=== PATIENT | female | born 1955 | race Caucasian/White ===

== ENCOUNTER 2016-12-02 09:41 | Emergency (ER) | payer MEDICARE, MEDICAID ==
[2016-12-02] MEDS ORDERED: NS 0.9% 1000 ML* 1,000 ML IV ONE (10:06)
[2016-12-02] MEDS ORDERED: Ondansetron INJ* 2 MG/ML VIAL IV ONE (10:06)
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
[2016-12-02 10:51] LABS: Hematocrit 41 % (35-47); Hemoglobin 13.6 g/dl (12.0-16.0); Mean Corpuscular HGB Conc 33 g/dl (31-36); Mean Corpuscular Hemoglobin 27 pg (27-31); Mean Corpuscular Volume 83 fL (80-97); Mean Platelet Volume 9 um3 (7.4-10.4); Red Blood Count 4.94 10^6/ul (4.0-5.4); Red Cell Distribution Width 15 % (10.5-15); White Blood Count 10.4 10^3/ul (3.5-10.8)
[2016-12-02 10:58] LABS: Urine Bacteria 1+ (Absent); Urine Bilirubin Negative (Negative); Urine Glucose 1+(50 mg/dL) (Negative); Urine Nitrite Negative (Negative)
[2016-12-02 11:14] LABS: Albumin 3.8 g/dL (3.2-5.2); BUN/Creatinine Ratio 19.2 (8-20); C Reactive Protein 65.02 mg/L (< 5.00); Calcium 9.3 mg/dL (8.6-10.3); EGFR African American 73.1 (>60); EGFR Non-African American 56.8 (>60); Globulin 3.4 g/dL (2-4); Potassium 3.3 mmol/L (3.5-5.0); Total Bilirubin 0.6 mg/dL (0.2-1.0); Total Protein 7.2 g/dL (6.4-8.9)
[2016-12-02] MEDS ORDERED: Ketorolac INJ* 30 MG/ML 1 ML VIAL IV ONE (13:14)
--- NOTE | 2016-12-02 13:18 | RAD ---
INDICATION: Right upper quadrant pain. COMPARISON: Comparison is made with a prior CT of the abdomen and pelvis from August 05, 2015. TECHNIQUE: Multiple real-time images of the right kidney were obtained. FINDINGS: The right kidney is normal in size shape and echogenicity. The kidney measured 13.5 x 4.0 x 4.4 cm. No significant focal abnormality or hydronephrosis was present. IMPRESSION: NEGATIVE EXAM, NO EVIDENCE FOR HYDRONEPHROSIS.
[2016-12-02] MEDS ORDERED: Iodixanol* (CONTRAST) 320 MG/ML 100 ML SDV IV ONE (13:28)
[2016-12-02] MEDS ORDERED: diPHENhydraMINE IV* 50 MG/ML 1 ml VIAL (BENADRYL) IV ONE (13:30)
--- NOTE | 2016-12-02 15:36 | RAD ---
INDICATION: RIGHT upper quadrant to mid abdominal pain. History of nonalcoholic cirrhosis. Nausea, vomiting, diarrhea for 3 weeks. Post appendectomy, cholecystectomy. COMPARISON: RIGHT unilateral ultrasound of the same date. August 05, 2015 CT. TECHNIQUE: Multidetector CT images were obtained from the lung bases to the ischial tuberosities with 11.8 mL Visipaque 320 IV and oral contrast. Multiplanar reformation. REPORT: Minimal bibasilar dependent atelectasis. 0.4 cm and adjacent smaller subpleural nodules at the anterior basal segment of the RIGHT lower lobe are unchanged compared with the 2015 exam without concern. Coronary artery calcifications. 19 cm cephalocaudal liver is hypodense relative to the spleen are unremarkable for micronodular surface contour. No focal hepatic lesions or biliary dilatation. Post cholecystectomy. Unremarkable pancreas. Upper normal 12.7 cm cephalocaudal spleen. Patent portal, splenic, and superior mesenteric veins. Negative for CT abnormality of the upper GI, small bowel, or colon. The appendix is not visualized consistent with surgical history. Negative for ascites, free air, hernias. Normal adrenal glands. Symmetric nephrograms and pyelograms. No significant change in 0.5 cm hypodense lesion at the midpole cortex of the LEFT kidney compared with the 2015 exam without concern. No suspicious focal renal lesions or hydronephrosis. Unremarkable ureters and urinary bladder as well as the uterus and RIGHT adnexal region. Normal size LEFT ovary is remarkable for a few nonspecific calcifications without change compared with the 2015 exam without concern most likely representing phleboliths or dystrophic calcification at prior undulation sites. Negative for adnexal region lesions. Negative for lymphadenopathy. Peripheral vascular disease without aneurysm of the abdominal aorta or iliac arteries. Probable hemodynamic significant stenoses at the bilateral common iliac arteries without gross change in appearance compared with the 2015 exam. Negative for suspicious osseous lesions. IMPRESSION: 1. Mildly enlarged liver with fatty infiltration and subtle nodular surface contour concerning for early cirrhosis. No focal hepatic lesions evident. 2. Post cholecystectomy. Negative for biliary dilatation. 3. Upper normal size spleen. 4. Post appendectomy. No acute pathologic process of the alimentary tract evident. 5. Negative for ascites. 7. Negative for lymphadenopathy. 8. Peripheral vascular disease without aneurysm of the abdominal aorta or iliac arteries. Probable hemodynamic significant stenoses at the bilateral common iliac arteries without gross change in appearance compared with the 2015 exam.
[2016-12-02 16:09] LABS: Troponin I 0.01 ng/mL (<0.04)
[2016-12-02 17:12] VITALS: BP 128/55
--- NOTE | 2016-12-05 07:02 | ED ---
Progress - Progress Note Progress Note: Pt's urine cx reveals enterococcus faecium >100,000. This organism is pansensitive, with an "I" for nitrofurantoin. She has an allergy to levofloxacin so would avoid fluoroquinolones. She would be able to take PCN or doxycycline. LMTC. Re-Evaluation - Re-Evaluation First Eval Re-Evaluation Time: 13:30 Change: Worse Comment: Patient reporting itching with administration of toradol. Benadryl will be given. Second Eval Re-Evaluation Time: 14:40 Change: Improved - benadryl decreased itching. Comment: itching has subsided. Course/Dx - Diagnoses Provider Diagnoses: Abdominal pain
== END 2016-12-02 17:11 | disposition home or self-care (01) ==
LOC: ED 09:41
DX: R10.11 Right upper quadrant pain (principal); R11.2 Nausea with vomiting, unspecified; R19.7 Diarrhea, unspecified; F17.210 Nicotine dependence, cigarettes, uncomplicated
CPT/HCPCS: 36415; 74177; 76775; 80053; 81003; 81015; 82150; 83605; 83690; 84484; 85025; 86140; 87077; 87086; 87186; 96374; 96375; 99284; J1200; J1885; J2405; Q9967

== ENCOUNTER 2016-12-21 04:31 | Emergency (ER) | payer MEDICARE, MEDICAID ==
[2016-12-21] MEDS ORDERED: diPHENhydraMINE IV* 50 MG/ML 1 ml VIAL (BENADRYL) IV ONE (04:40)
[2016-12-21] MEDS ORDERED: NS 0.9% 1000 ML* 1,000 ML IV ONE (04:49)
[2016-12-21] MEDS ORDERED: Ondansetron INJ* 2 MG/ML VIAL IV ONE (04:49)
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
[2016-12-21 05:36] VITALS: BP 105/51
== END 2016-12-21 05:34 | disposition home or self-care (01) ==
LOC: ED 04:31
DX: L23.9 Allergic contact dermatitis, unspecified cause (principal); F17.210 Nicotine dependence, cigarettes, uncomplicated; R06.02 Shortness of breath; R68.84 Jaw pain
CPT/HCPCS: 96374; 96375; 99282; J1200; J2405

== ENCOUNTER 2017-02-21 07:06 | Inpatient (IN) | payer MEDICARE, MEDICAID ==
[2017-02-21] MEDS ORDERED: Aspirin TAB* 325 MG PO ONE (07:40)
[2017-02-21 08:20] LABS: Albumin 3.4 g/dL (3.2-5.2); BUN/Creatinine Ratio 13.4 (8-20); Calcium 8.8 mg/dL (8.6-10.3); EGFR African American 90.8 (>60); EGFR Non-African American 70.6 (>60); Globulin 3.2 g/dL (2-4); Total Bilirubin 0.4 mg/dL (0.2-1.0); Total Protein 6.6 g/dL (6.4-8.9)
--- NOTE | 2017-02-21 08:20 | RAD ---
HISTORY: Chest pain COMPARISONS: November 11, 2016 VIEWS:1: Single frontal portable view of the chest at 7:45 AM FINDINGS: LINES AND TUBES: None. CARDIOMEDIASTINAL SILHOUETTE: The cardiomediastinal silhouette is normal for portable technique. PLEURA: The costophrenic angles are sharp. No pleural abnormalities are noted. LUNG PARENCHYMA: There is hyperinflation. ABDOMEN: The upper abdomen is clear. There is no subphrenic gas. BONES AND SOFT TISSUES: No bone or soft tissue abnormalities are noted. IMPRESSION: HYPERINFLATION. NO ACTIVE CARDIOPULMONARY DISEASE.
[2017-02-21 08:24] LABS: Hematocrit 39 % (35-47); Hemoglobin 12.9 g/dl (12.0-16.0); Mean Corpuscular HGB Conc 33 g/dl (31-36); Mean Corpuscular Hemoglobin 28 pg (27-31); Mean Corpuscular Volume 84 fL (80-97); Mean Platelet Volume 9 um3 (7.4-10.4); Red Blood Count 4.63 10^6/ul (4.0-5.4); Red Cell Distribution Width 16 % (10.5-15); White Blood Count 10.8 10^3/ul (3.5-10.8)
[2017-02-21] MEDS ORDERED: Nitroglycerin TAB 0.4 MG* 0.4 MG TAB SL ONE (09:39)
[2017-02-21] MEDS ORDERED: Nitroglycerin TAB 0.4 MG* 0.4 MG TAB SL PRN (13:24)
[2017-02-21] MEDS ORDERED: Dextrose 50% Syringe 50 ML* 25 GM/50 ML SYRINGE IV PUSH PRN (13:25)
[2017-02-21] MEDS ORDERED: Ondansetron INJ* 2 MG/ML VIAL IV PRN (15:10)
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
[2017-02-21] MEDS: Clopidogrel TAB* 75 MG PO SCH (16:11)
[2017-02-21] MEDS: Metoprolol Succinate XL TAB* 25 MG PO SCH (16:12)
[2017-02-21] MEDS: Baclofen TAB* 10 MG PO SCH ×2 (16:12→20:49)
[2017-02-21] MEDS: Hydrochlorothiazide TAB* 25 MG PO SCH (16:13)
[2017-02-21] MEDS: Isosorbide Mononitrate ER TAB* 30 MG PO SCH (16:13)
[2017-02-21] MEDS: Atorvastatin* 40 MG TAB PO SCH (16:13)
[2017-02-21] MEDS: Ferrous Sulfate TAB* 325 MG PO SCH (16:14)
[2017-02-21] MEDS: Enoxaparin(*) 40 MG/0.4 ML SYR SUBCUT SCH (16:14)
[2017-02-21] MEDS: Insulin LISPRO* 1 UNITS UNIT SUBCUT SCH (16:49)
[2017-02-21] MEDS: Pramipexole TAB* 0.5 MG PO SCH (16:50)
[2017-02-21] MEDS: Lisinopril TAB* 10 MG PO SCH (20:49)
[2017-02-21] MEDS: Ibuprofen TAB* 400 MG PO PRN (22:16)
--- NOTE | 2017-02-21 23:55 | HP ---
CC: Dr. Rene Parks; Dr. Son Brody, Cardiology * HISTORY AND PHYSICAL: DATE OF ADMISSION: 02/21/17 PRIMARY CARE PHYSICIAN: Dr. Rene Parks. CHIEF COMPLAINT: Chest pain, nausea, vomiting. HISTORY OF PRESENT ILLNESS: Ms. Nowak is a 61-year-old female with a past medical history of hypertension; hyperlipidemia; CAD, status post stent placement; diabetes; peripheral vascular disease; aortic regurgitation; NANDA; and OLSON cirrhosis who presents to the hospital with chest pain, nausea, vomiting. The patient states she saw Dr. Brody yesterday per routine evaluation. She has reportedly been having this exertional chest pain for a year now and Dr. Brody has been trying to help manage it telling that she will likely need another cardiac catheterization and possible stent placement. She states the chest pain is present with exertion and associated with shortness of breath. Occasionally, she will have symptoms at rest as well. She went to see Dr. Brody yesterday and she states that he prescribed Imdur and Toprol-XL to add to her regimen to try to control her anginal symptoms. The patient states she was prescribed to take half a pill twice a day of both of these medications ; however, in speaking with the pharmacy, it appears that this should be half a pill once a day. She states she took the first medication shortly after she saw Dr. Brody in the morning and took them again at 7 p.m. About 4 to 5 hours later, she developed nausea and vomiting, which persisted throughout the night and then, she states around 6:30 p.m., she started having pain in her bilateral neck radiating to her jaw. Due to these symptoms, she came to the hospital for further evaluation. She states for the past few nights, she has woken up gasping for air. She states she has had a sleep study in the past and she states that she could not use CPAP because she was told that she needs to have surgery first and has not had cardiac clearance for this. She also reports that she has had intermittent nausea and vomiting that has been going on for a few months now. She states the last time this happened, it went on for 1 month where she would have emesis nearly every day. This was felt to be possibly due to her diabetic medications and after stopping these, her symptoms resolved after a week or so. This was just recently over the past few weeks. In the emergency department, the patient was found to have two negative troponins. Dr. Avelar spoke to Dr. Gonzalez, the assessment manager wireless sales consultant, who spoke to the patient's primary assessment manager, Dr. Brody, who requested that she be admitted for a stress test for maximum medical therapy to see if she is still having inducible ischemia. PAST MEDICAL HISTORY: Hypertension; hyperlipidemia; CAD, status post stenting in the past; diabetes; peripheral vascular disease; aortic regurgitation; NANDA. The patient reports history of OLSON cirrhosis. PAST SURGICAL HISTORY: Lap denia, appendectomy, tubal ligation, lumpectomy, laminectomy, bilateral lower extremity stenting. HOME MEDICATIONS: 1. Hydrochlorothiazide 50 mg by mouth daily. 2. Glipizide 5 mg by mouth 2 times daily. 3. Ferrous sulfate 325 mg by mouth daily. 4. Toprol-XL 12.5 mg by mouth daily. 5. Imdur 15 mg by mouth daily. 6. Alendronate 70 mg by mouth weekly. 7. Plavix 75 mg by mouth daily. 8. Baclofen 20 mg by mouth 3 times daily. 9. Atorvastatin 40 mg by mouth daily. 10. Aspirin 81 mg by mouth daily. 11. Nitroglycerin 0.4 mg sublingual every 5 minutes as needed for chest pain. 12. Lisinopril 20 mg by mouth 2 times daily. 13. Ibuprofen 40 mg by mouth every 6 hours as needed for pain. 14. Benadryl 50 mg by mouth every 6 hours as needed for allergy symptoms. 15. Pramipexole 1.5 mg by mouth every evening. 16. Omeprazole 20 mg by mouth 2 times daily. ALLERGIES: The patient has allergies to LEVOFLOXACIN, PREGABALIN, SULFA DRUGS, CI PIGMENT BLUE 63, DULOXETINE, ACETAMINOPHEN, GABAPENTIN, MORPHINE, OXYCODONE, TRAMADOL. FAMILY HISTORY: Significant for mother with cirrhosis, father with leukemia. SOCIAL HISTORY: The patient is a current 1 pack per day smoker, has been smoking for 40 plus years. Denies any alcohol or illicit drug use. REVIEW OF SYSTEMS: A 12-point review of systems negative except for that as noted in the HPI. PHYSICAL EXAMINATION GENERAL: The patient is a middle-aged, obese, female, sitting in bed , in no apparent distress. VITAL SIGNS: On admission, temperature 97.6, heart rate 63, respiratory rate of 18, O2 saturation 98% on room air, blood pressure 170/74. HEENT: Normocephalic, atraumatic. Eyes: Pupils equal, round, reactive to light and accommodation. Anicteric sclerae. ENT: Moist mucous membranes. NECK: No cervical adenopathy. LUNGS: Clear to auscultation bilaterally. No wheezes, rales, or rhonchi. CARDIOVASCULAR: Regular rate and rhythm. S1, S2 present. Systolic ejection murmur noted. ABDOMEN: Soft, nontender, nondistended. Bowel sounds positive. EXTREMITIES: No cyanosis, clubbing, or edema. NEUROLOGIC: The patient is alert and oriented x3. No focal neurological deficits. LABS AND DIAGNOSTICS: White blood cell count 10.8, hematocrit of 39, platelets of 172. INR of 0.93. Sodium of 130, potassium 4.0, chloride of 101, carbon dioxide 26, BUN 11, creatinine 0.82, glucose 280, lactic acid of 1.7, calcium of 8.8. LFTs: AST of 20, ALT of 27, alk phos of 110. Troponins negative x3. EKG - personally reviewed, shows normal sinus rhythm. Flattened T waves in the lateral leads and T wave inversions in I and aVL, which are both old. The patient has Q waves in lead III, which seemed new. Chest x-ray - personally reviewed, shows hyperinflation of the lungs with no acute disease. ASSESSMENT AND PLAN: Chest pain, nausea, and vomiting in a 61-year-old female with a past medical history of hypertension, hyperlipidemia, coronary artery disease, diabetes, peripheral vascular disease, aortic regurgitation, obstructive sleep apnea, and possible nonalcoholic steatohepatitis cirrhosis. 1. Chest pain, nausea, vomiting: Possibly related to underlying cardiac disease. She has had negative troponin x3. We will monitor the patient on telemetry and we will plan for nuclear cardiac stress test in the morning. I have instructed the nursing staff to give the patient all of her a.m. medications in the morning prior to her stress test. The patient's nausea and vomiting seemed to have resolved right now. It is unclear if this was due to her medications, but we will trial them today to see if she tolerates them. We will give Zofran p.r.n. 2. Diabetes: Hold home glipizide for now. Treat the patient with a Humalog insulin sliding scale. Check glucoses a.c. and h.s. 3. Hypertension: Continue home metoprolol, lisinopril, hydrochlorothiazide, and Imdur. 4. History of coronary artery disease: Continue home beta-giorgi, statin, aspirin, and Plavix. 5. Obstructive sleep apnea: The patient is not on CPAP at home and states she cannot use one until she has some sort of oral or throat surgery. 6. Possible cirrhosis: No evidence of any decompensation at this time. 7. DVT prophylaxis: Lovenox subcu. 8. Code status: The patient is full code. TIME SPENT: Total time spent on this admission 45 minutes with over half the time spent [id number] with the patient in counseling and coordinating care. [id number]/CPS #: [id number] MTDD
[2017-02-22] MEDS ORDERED: Mouth Piece, Nicotine* 1 EACH CARTRIDGE ONE (01:32)
[2017-02-22] MEDS: Nicotine Inhaler* 10 MG AMP INH PRN ×2 (01:34→15:13)
[2017-02-22] MEDS: Ibuprofen TAB* 400 MG PO PRN ×2 (06:16→18:52)
[2017-02-22] MEDS: Clopidogrel TAB* 75 MG PO SCH (07:48)
[2017-02-22] MEDS: Ferrous Sulfate TAB* 325 MG PO SCH (07:48)
[2017-02-22] MEDS: Lisinopril TAB* 10 MG PO SCH ×2 (07:48→20:46)
[2017-02-22] MEDS: Isosorbide Mononitrate ER TAB* 30 MG PO SCH (07:48)
[2017-02-22] MEDS: Atorvastatin* 40 MG TAB PO SCH (07:49)
[2017-02-22] MEDS: Metoprolol Succinate XL TAB* 25 MG PO SCH (07:49)
[2017-02-22] MEDS: Aspirin EC Low Dose* 81 MG TAB.EC PO SCH (07:50)
[2017-02-22] MEDS: Hydrochlorothiazide TAB* 25 MG PO SCH (07:50)
[2017-02-22] MEDS: Baclofen TAB* 10 MG PO SCH ×3 (07:50→20:47)
[2017-02-22] MEDS: CMCS:Pantoprazole TAB (NF) 40 MG TAB PO SCH (07:50)
[2017-02-22] MEDS ORDERED: Regadenoson* 0.4 MG/5 ML SYRINGE ONE (09:47)
[2017-02-22] MEDS: Insulin LISPRO* 1 UNITS UNIT SUBCUT SCH ×3 (09:57→17:41)
--- NOTE | 2017-02-22 10:49 | RAD ---
Edited for charges. INDICATION: Chest pain. COMPARISON: Comparison is made with a prior study from October 18, 2013. Technique: A single day myocardial perfusion stress study was performed. Initially the resting study was performed. The patient was given an intravenous injection of 10.1 mCi of technetium 99m tetrofosmin and and the heart was imaged in multiple projections. The patient returned later in the day and under the direction of Dr. Cantu, the patient was given intervenous injection of Lexiscan. Subsequently the patient was given intravenous injection of 25.3 mCi of technetium 99m tetrofosmin and the heart was imaged in multiple projections. Images were reconstructed in the axial, sagittal and coronal planes and in a 3- D format. FINDINGS: There appears to be normal wall motion and myocardial thickening. The left ventricular ejection fraction was calculated to be 66%. Review of the images demonstrates a small to moderate size area of decreased activity in the anterior wall on the post pharmacologic stress images which appears improved on the resting set of images suggestive of an area of ischemia. No other focal abnormalities are seen. IMPRESSION: FINDINGS SUGGESTIVE OF A SMALL TO MODERATE SIZE AREA OF ISCHEMIA IN THE ANTERIOR WALL. ASSESSMENT: Intermediate risk. Based on imaging criteria from ACC/AHA 2002 Guideline Update for the Management of Patients With Chronic Stable Angina Table 23. Noninvasive Risk Stratification. MTDD
--- NOTE | 2017-02-22 11:22 | PN ---
Subjective Date of Service: 02/22/17 Interval History: Ms. Nowak states that she has continued to have chest pressure, SOB, and jaw pain intermittently. At the time of my examination she states that she only feels a bit of jaw discomfort. Objective Active Medications: Aspirin (Aspirin Ec Low Dose*) 81 mg PO DAILY [facility] Atorvastatin Calcium (Lipitor*) 40 mg PO DAILY [facility] Baclofen (Lioresal Tab*) 20 mg PO TID [facility] Clopidogrel Bisulfate (Plavix Tab*) 75 mg PO DAILY [facility] Dextrose (D50w Syringe 50 Ml*) 12.5 gm IV PUSH .FOR FS < 60 - SS PRN Enoxaparin Sodium (Lovenox(*)) 40 mg SUBCUT Q24H [facility] Ferrous Sulfate (Ferrous Sulfate Tab*) 325 mg PO DAILY [facility] Hydrochlorothiazide (Hydrodiuril Tab*) 50 mg PO DAILY [facility] Ibuprofen (Motrin Tab*) 400 mg PO Q6H PRN Insulin Human Lispro (Humalog*) 0 - 15 units SUBCUT AC [facility] Isosorbide Mononitrate (Imdur Er Tab*) 15 mg PO DAILY [facility] Lisinopril (Prinivil Tab*) 20 mg PO BID [facility] Metoprolol Succinate (Toprol Xl Tab*) 12.5 mg PO DAILY [facility] Nicotine (Nicotine Inhaler*) 10 mg INH Q2H PRN Nitroglycerin (Nitroglycerin Tab 0.4 Mg*) 0.4 mg SL Q5M PRN Ondansetron HCl (Zofran Inj*) 4 mg IV Q6H PRN Pantoprazole Sodium (Protonix Tab (Nf)) 40 mg PO DAILY [facility] Pramipexole Dihydrochloride (Mirapex Tab*) 1.5 mg PO QPM [facility] Vital Signs 02/21/17 02/21/17 02/21/17 13:26 13:30 14:28 Temperature Pulse Rate 59 Respiratory Rate Blood Pressure 143/85 161/68 174/47 (mmHg) O2 Sat by Pulse 98 Oximetry 02/21/17 02/21/17 02/21/17 14:30 15:35 15:36 Temperature 98.0 F 98.0 F Pulse Rate 63 63 Respiratory 18 18 Rate Blood Pressure 155/76 144/76 144/76 (mmHg) O2 Sat by Pulse 99 98 Oximetry 02/21/17 02/21/17 02/22/17 19:20 23:42 03:18 Temperature 97.6 F 97.4 F 97.4 F Pulse Rate 60 61 54 Respiratory 20 16 16 Rate Blood Pressure 119/43 132/62 103/65 (mmHg) O2 Sat by Pulse 99 96 98 Oximetry 02/22/17 07:10 Temperature 97.5 F Pulse Rate 57 Respiratory 18 Rate Blood Pressure 162/71 (mmHg) O2 Sat by Pulse 96 Oximetry Oxygen Devices in Use Now: Nasal Cannula Appearance: Female sitting up in bed in NAD Eyes: No Scleral Icterus Ears/Nose/Mouth/Throat: Mucous Membranes Moist Neck: Trachea Midline Respiratory: Symmetrical Chest Expansion and Respiratory Effort, Clear to Auscultation Cardiovascular: No Edema, - - Si, S2, soft systolic murmur at sternal border Abdominal: NL Sounds; No Tenderness; No Distention Lymphatic: No Cervical Adenopathy Extremities: No Edema Skin: No Rash or Ulcers Neurological: Alert and Oriented x 3, NL Muscle Strength and Tone Nutrition: Taking PO's Result Diagrams: 02/21/17 07:50 02/21/17 07:50 Additional Lab and Data: Lab Results 02/21/17 02/21/17 02/21/17 Range/Units 07:50 07:50 07:50 WBC 10.8 (3.5-10.8) 10^3/ul RBC 4.63 (4.0-5.4) 10^6/ul Hgb 12.9 (12.0-16.0) g/dl Hct 39 (35-47) % MCV 84 (80-97) fL MCH 28 (27-31) pg MCHC 33 (31-36) g/dl RDW 16 H (10.5-15) % Plt Count 172 (150-450) 10^3/ul MPV 9 (7.4-10.4) um3 Neut % (Auto) 81.4 (38-83) % Lymph % (Auto) 11.2 L (25-47) % [place] % (Auto) 4.9 (1-9) % Eos % (Auto) 1.7 (0-6) % Baso % (Auto) 0.8 (0-2) % Absolute Neuts (auto) 8.8 H (1.5-7.7) 10^3/ul Absolute Lymphs (auto) 1.2 (1.0-4.8) 10^3/ul Absolute Monos (auto) 0.5 (0-0.8) 10^3/ul Absolute Eos (auto) 0.2 (0-0.6) 10^3/ul Absolute Basos (auto) 0.1 (0-0.2) 10^3/ul Absolute Nucleated RBC 0.01 10^3/ul Nucleated RBC % 0 INR (Anticoag Therapy) 0.93 (0.89-1.11) Sodium 130 L (133-145) mmol/L Potassium 4.0 (3.5-5.0) mmol/L Chloride 101 (101-111) mmol/L Carbon Dioxide 26 (22-32) mmol/L Anion Gap 3 (2-11) mmol/L BUN 11 (6-24) mg/dL Creatinine 0.82 (0.51-0.95) mg/dL Est GFR ( Amer) 90.8 (>60) Est GFR (Non-Af Amer) 70.6 (>60) BUN/Creatinine Ratio 13.4 (8-20) Glucose 280 H (70-100) mg/dL Lactic Acid (0.5-2.0) mmol/L Calcium 8.8 (8.6-10.3) mg/dL Total Bilirubin 0.40 (0.2-1.0) mg/dL AST 20 (13-39) U/L ALT 27 (7-52) U/L Alkaline Phosphatase 110 H (34-104) U/L Troponin I 0.00 (<0.04) ng/mL Total Protein 6.6 (6.4-8.9) g/dL Albumin 3.4 (3.2-5.2) g/dL Globulin 3.2 (2-4) g/dL Albumin/Globulin Ratio 1.1 (1-3) 02/21/17 02/21/17 Range/Units 07:50 10:32 WBC (3.5-10.8) 10^3/ul RBC (4.0-5.4) 10^6/ul Hgb (12.0-16.0) g/dl Hct (35-47) % MCV (80-97) fL MCH (27-31) pg MCHC (31-36) g/dl RDW (10.5-15) % Plt Count (150-450) 10^3/ul MPV (7.4-10.4) um3 Neut % (Auto) (38-83) % Lymph % (Auto) (25-47) % [place] % (Auto) (1-9) % Eos % (Auto) (0-6) % Baso % (Auto) (0-2) % Absolute Neuts (auto) (1.5-7.7) 10^3/ul Absolute Lymphs (auto) (1.0-4.8) 10^3/ul Absolute Monos (auto) (0-0.8) 10^3/ul Absolute Eos (auto) (0-0.6) 10^3/ul Absolute Basos (auto) (0-0.2) 10^3/ul Absolute Nucleated RBC 10^3/ul Nucleated RBC % INR (Anticoag Therapy) (0.89-1.11) Sodium (133-145) mmol/L Potassium (3.5-5.0) mmol/L Chloride (101-111) mmol/L Carbon Dioxide (22-32) mmol/L Anion Gap (2-11) mmol/L BUN (6-24) mg/dL Creatinine (0.51-0.95) mg/dL Est GFR ( Amer) (>60) Est GFR (Non-Af Amer) (>60) BUN/Creatinine Ratio (8-20) Glucose (70-100) mg/dL Lactic Acid 1.7 (0.5-2.0) mmol/L Calcium (8.6-10.3) mg/dL Total Bilirubin (0.2-1.0) mg/dL AST (13-39) U/L ALT (7-52) U/L Alkaline Phosphatase (34-104) U/L Troponin I 0.00 (<0.04) ng/mL Total Protein (6.4-8.9) g/dL Albumin (3.2-5.2) g/dL Globulin (2-4) g/dL Albumin/Globulin Ratio (1-3) Assess/Plan/Problems-Billing Assessment: Mr. Nowak is a 61 yo female with a PMH of CAD with stent placement to the RCA and LAD, DM, HTN, NANDA, PVD, aortic regurgitation who was admitted on 02/21/17 with chest pain radiating into jaw and SOB. - Patient Problems (1) Chest pain Comment: - Patient continues to have mild jaw pain at rest. - Trops negative but stress test read by radiology to show an area of inducible ischemia to the anterior wall. Patient has been following with Dr. Brody for return of anginal type symptoms recently. Has history of CAD with stent to LAD and RCA. Discussed case with Dr. Cantu who reviewed the images with Dr. Sorensen. Neither of them feel there is ischemia in the area noted by radiology. Dr. Cantu states no cardiac cath indicated at this time. Dr. Cantu recommends maximizing medical therapy with increased dose isosorbide and metoprolol. Plan for close follow up with Dr. Sorensen outpatient. - Dr. Cantu consulted for consideration fo repeat cardiac cath. - Continue aspirin, plavix, metoprolol, isosorbide. (2) NANDA (obstructive sleep apnea) Comment: - Not on CPAP at home as she cannot tolerate it. - Suspect that her symptoms of chest pressure are in part related to untreated NANDA as they have all occurred at night when she wakes suddenly when trying to go to sleep gasping for air. - Plan to check overnight pulse ox on room air to see if home O2 at night would be helpful for her. (3) Diabetes Comment: - BGs ~ 200. - Hold glipizide. Increase SSI coverage with meals. AM BG relatively well controlled. Continue consistent carb diet. (4) Hypertension Comment: - SBP 100-160s. - Continue increased dose metoprolol, increased dose isosorbide and lisinopril. (5) Hyperlipidemia Comment: - Continue atorvastatin. (6) DVT prophylaxis Comment: - Lovenox SQ. Status and Disposition: Convert to inpatient with need for possible cardiac cath. Anticipate discharge to home when medically stable.
[2017-02-22] MEDS ORDERED: Nicotine PATCH 21 MG/24 HR* PATCH TRANSDERM SCH (15:00)
[2017-02-22] MEDS ORDERED: Nicotine PATCH 14 MG/24 HR* PATCH TRANSDERM SCH (15:00)
[2017-02-22] MEDS ORDERED: Isosorbide Mononitrate ER TAB* 30 MG PO SCH (15:12)
[2017-02-22] MEDS ORDERED: Metoprolol Succinate XL TAB* 25 MG PO SCH (15:13)
[2017-02-22] MEDS: Enoxaparin(*) 40 MG/0.4 ML SYR SUBCUT SCH (15:15)
[2017-02-22] MEDS ORDERED: Isosorbide Mononitrate ER TAB* 30 MG PO ONE (16:22)
[2017-02-22] MEDS ORDERED: Metoprolol Tartrate TAB* 25 MG PO ONE (16:23)
[2017-02-22] MEDS: Pramipexole TAB* 0.5 MG PO SCH (17:05)
[2017-02-23] MEDS: Ibuprofen TAB* 400 MG PO PRN (04:00)
[2017-02-23] MEDS ORDERED: Nicotine Patch Removal NOTE FOLLOW UP SCH (06:00)
[2017-02-23 07:24] VITALS: BP 143/73
[2017-02-23] MEDS: Ferrous Sulfate TAB* 325 MG PO SCH (08:21)
[2017-02-23] MEDS: Lisinopril TAB* 10 MG PO SCH (08:21)
[2017-02-23] MEDS: Hydrochlorothiazide TAB* 25 MG PO SCH (08:21)
[2017-02-23] MEDS: Aspirin EC Low Dose* 81 MG TAB.EC PO SCH (08:21)
[2017-02-23] MEDS: Clopidogrel TAB* 75 MG PO SCH (08:21)
[2017-02-23] MEDS: Baclofen TAB* 10 MG PO SCH (08:21)
[2017-02-23] MEDS: Atorvastatin* 40 MG TAB PO SCH (08:21)
[2017-02-23] MEDS: CMCS:Pantoprazole TAB (NF) 40 MG TAB PO SCH (08:22)
[2017-02-23] MEDS: Insulin LISPRO* 1 UNITS UNIT SUBCUT SCH (08:22)
--- NOTE | 2017-02-23 08:39 | PN ---
Subjective Date of Service: 02/23/17 Interval History: Ms. Nowak states that she was actually able to sleep well last night. When I ask what was different, she states, " I was just exhausted." She denies complaint of chest pain or SOB and is eager for discharge to home. Objective Active Medications: Aspirin (Aspirin Ec Low Dose*) 81 mg PO DAILY [facility] Atorvastatin Calcium (Lipitor*) 40 mg PO DAILY [facility] Baclofen (Lioresal Tab*) 20 mg PO TID [facility] Clopidogrel Bisulfate (Plavix Tab*) 75 mg PO DAILY [facility] Dextrose (D50w Syringe 50 Ml*) 12.5 gm IV PUSH .FOR FS < 60 - SS PRN Enoxaparin Sodium (Lovenox(*)) 40 mg SUBCUT Q24H [facility] Ferrous Sulfate (Ferrous Sulfate Tab*) 325 mg PO DAILY [facility] Hydrochlorothiazide (Hydrodiuril Tab*) 50 mg PO DAILY [facility] Ibuprofen (Motrin Tab*) 400 mg PO Q6H PRN Insulin Human Lispro (Humalog*) 0 - 15 units SUBCUT AC [facility] Isosorbide Mononitrate (Imdur Er Tab*) 30 mg PO DAILY [facility] Lisinopril (Prinivil Tab*) 20 mg PO BID [facility] Metoprolol Succinate (Toprol Xl Tab*) 25 mg PO DAILY [facility] Nicotine (Nicotine Inhaler*) 10 mg INH Q2H PRN Nicotine (Nicotine Patch 21 Mg/24 Hr*) 1 patch TRANSDERM Q24H [facility] Nitroglycerin (Nitroglycerin Tab 0.4 Mg*) 0.4 mg SL Q5M PRN Ondansetron HCl (Zofran Inj*) 4 mg IV Q6H PRN Pantoprazole Sodium (Protonix Tab (Nf)) 40 mg PO DAILY [facility] Pharmacy Profile Note (Nicotine Patch Removal Note*) 1 note FOLLOW UP 0600 [facility] Pramipexole Dihydrochloride (Mirapex Tab*) 1.5 mg PO QPM [facility] Vital Signs 02/22/17 02/22/17 02/22/17 15:05 19:19 20:00 Temperature 97.6 F 97.4 F Pulse Rate 63 60 Respiratory 20 20 20 Rate Blood Pressure 149/67 110/56 (mmHg) O2 Sat by Pulse 96 96 Oximetry 02/22/17 02/23/17 02/23/17 23:17 03:24 07:09 Temperature 97.7 F 97.8 F 98.3 F Pulse Rate 57 53 58 Respiratory 16 16 18 Rate Blood Pressure 116/43 110/46 143/73 (mmHg) O2 Sat by Pulse 99 97 98 Oximetry 02/23/17 07:35 Temperature Pulse Rate Respiratory 18 Rate Blood Pressure (mmHg) O2 Sat by Pulse Oximetry Oxygen Devices in Use Now: None Appearance: Female sitting up in bed in NAD Eyes: No Scleral Icterus Ears/Nose/Mouth/Throat: Mucous Membranes Moist Neck: Trachea Midline Respiratory: Symmetrical Chest Expansion and Respiratory Effort, Clear to Auscultation Cardiovascular: NL Sounds; No Murmurs; No JVD, No Edema Abdominal: NL Sounds; No Tenderness; No Distention Lymphatic: No Cervical Adenopathy Extremities: No Edema Skin: No Rash or Ulcers Neurological: Alert and Oriented x 3, NL Muscle Strength and Tone Nutrition: Taking PO's Result Diagrams: 02/21/17 07:50 02/21/17 07:50 Additional Lab and Data: Lab Results 02/21/17 02/21/17 02/21/17 Range/Units 07:50 07:50 07:50 WBC 10.8 (3.5-10.8) 10^3/ul RBC 4.63 (4.0-5.4) 10^6/ul Hgb 12.9 (12.0-16.0) g/dl Hct 39 (35-47) % MCV 84 (80-97) fL MCH 28 (27-31) pg MCHC 33 (31-36) g/dl RDW 16 H (10.5-15) % Plt Count 172 (150-450) 10^3/ul MPV 9 (7.4-10.4) um3 Neut % (Auto) 81.4 (38-83) % Lymph % (Auto) 11.2 L (25-47) % [place] % (Auto) 4.9 (1-9) % Eos % (Auto) 1.7 (0-6) % Baso % (Auto) 0.8 (0-2) % Absolute Neuts (auto) 8.8 H (1.5-7.7) 10^3/ul Absolute Lymphs (auto) 1.2 (1.0-4.8) 10^3/ul Absolute Monos (auto) 0.5 (0-0.8) 10^3/ul Absolute Eos (auto) 0.2 (0-0.6) 10^3/ul Absolute Basos (auto) 0.1 (0-0.2) 10^3/ul Absolute Nucleated RBC 0.01 10^3/ul Nucleated RBC % 0 INR (Anticoag Therapy) 0.93 (0.89-1.11) Sodium 130 L (133-145) mmol/L Potassium 4.0 (3.5-5.0) mmol/L Chloride 101 (101-111) mmol/L Carbon Dioxide 26 (22-32) mmol/L Anion Gap 3 (2-11) mmol/L BUN 11 (6-24) mg/dL Creatinine 0.82 (0.51-0.95) mg/dL Est GFR ( Amer) 90.8 (>60) Est GFR (Non-Af Amer) 70.6 (>60) BUN/Creatinine Ratio 13.4 (8-20) Glucose 280 H (70-100) mg/dL Lactic Acid (0.5-2.0) mmol/L Calcium 8.8 (8.6-10.3) mg/dL Total Bilirubin 0.40 (0.2-1.0) mg/dL AST 20 (13-39) U/L ALT 27 (7-52) U/L Alkaline Phosphatase 110 H (34-104) U/L Troponin I 0.00 (<0.04) ng/mL Total Protein 6.6 (6.4-8.9) g/dL Albumin 3.4 (3.2-5.2) g/dL Globulin 3.2 (2-4) g/dL Albumin/Globulin Ratio 1.1 (1-3) 02/21/17 02/21/17 Range/Units 07:50 10:32 WBC (3.5-10.8) 10^3/ul RBC (4.0-5.4) 10^6/ul Hgb (12.0-16.0) g/dl Hct (35-47) % MCV (80-97) fL MCH (27-31) pg MCHC (31-36) g/dl RDW (10.5-15) % Plt Count (150-450) 10^3/ul MPV (7.4-10.4) um3 Neut % (Auto) (38-83) % Lymph % (Auto) (25-47) % [place] % (Auto) (1-9) % Eos % (Auto) (0-6) % Baso % (Auto) (0-2) % Absolute Neuts (auto) (1.5-7.7) 10^3/ul Absolute Lymphs (auto) (1.0-4.8) 10^3/ul Absolute Monos (auto) (0-0.8) 10^3/ul Absolute Eos (auto) (0-0.6) 10^3/ul Absolute Basos (auto) (0-0.2) 10^3/ul Absolute Nucleated RBC 10^3/ul Nucleated RBC % INR (Anticoag Therapy) (0.89-1.11) Sodium (133-145) mmol/L Potassium (3.5-5.0) mmol/L Chloride (101-111) mmol/L Carbon Dioxide (22-32) mmol/L Anion Gap (2-11) mmol/L BUN (6-24) mg/dL Creatinine (0.51-0.95) mg/dL Est GFR ( Amer) (>60) Est GFR (Non-Af Amer) (>60) BUN/Creatinine Ratio (8-20) Glucose (70-100) mg/dL Lactic Acid 1.7 (0.5-2.0) mmol/L Calcium (8.6-10.3) mg/dL Total Bilirubin (0.2-1.0) mg/dL AST (13-39) U/L ALT (7-52) U/L Alkaline Phosphatase (34-104) U/L Troponin I 0.00 (<0.04) ng/mL Total Protein (6.4-8.9) g/dL Albumin (3.2-5.2) g/dL Globulin (2-4) g/dL Albumin/Globulin Ratio (1-3) Assess/Plan/Problems-Billing Assessment: Mr. Nowak is a 61 yo female with a PMH of CAD with stent placement to the RCA and LAD, DM, HTN, NANDA, PVD, aortic regurgitation who was admitted on 02/21/17 with chest pain radiating into jaw and SOB. - Patient Problems (1) Chest pain Comment: - Resolved. - Trops negative but stress test read by radiology to show an area of inducible ischemia to the anterior wall. Patient has been following with Dr. Brody for return of anginal type symptoms recently. Has history of CAD with stent to LAD and RCA. Discussed case with Dr. Cantu who reviewed the images with Dr. Sorensen. Neither of them feel there is ischemia in the area noted by radiology. Dr. Cantu states no cardiac cath indicated at this time. Dr. Cantu recommends maximizing medical therapy with increased dose isosorbide and metoprolol. Plan for close follow up with Dr. Sorensen outpatient. - Continue aspirin, plavix. - No evidence of CHF. Cxray clear and BNP 44. (2) NANDA (obstructive sleep apnea) Comment: - Not on CPAP at home as she cannot tolerate it. - Suspect that her symptoms of chest pressure are in part related to untreated NANDA as they have all occurred at night when she wakes suddenly when trying to go to sleep gasping for air. - She does qualify for home O2 at bedtime, caseworker protective services to arrange. (3) Diabetes Comment: - BGs ~ 200. - Resume home glipizide. (4) Hypertension Comment: - SBP 140s. - Continue increased dose metoprolol, increased dose isosorbide and lisinopril. (5) Hyperlipidemia Comment: - Continue atorvastatin. (6) DVT prophylaxis Comment: - Lovenox SQ. Status and Disposition: Convert to inpatient with need for possible cardiac cath. Discharge to home.
--- NOTE | 2017-02-24 08:06 | DS ---
CC: Rene Parks MD; Operations Asst Son Brody MD* HOSPITAL MEDICINE DISCHARGE SUMMARY: DATE OF ADMISSION: 02/22/17 DATE OF DISCHARGE: 02/23/17 ATTENDING PHYSICIAN: Dr. Adrianna Georges* (dictation provided by Kimberly Fair NP) . PRIMARY CARE PHYSICIAN: Dr. Rene Parks. CHIEF COMPLAINT: Chest pain and shortness of breath. HISTORY OF PRESENT ILLNESS: Ms. Nowak is a 61-year-old female with a past medical history of diabetes, hypertension, coronary artery disease, status post stent placement, peripheral vascular disease, aortic regurgitation and obstructive sleep apnea who presented to the hospital on 02/21/17 with concerns for chest pain, nausea and vomiting. Please see dictated H and P from Pete Tan MD for complete details. In brief, the patient reported at that time that she was having chest pain with exertion associated with shortness of breath. She had recently seen Dr. Brody who had added Imdur and Toprol-XL to help control her possible angina symptoms. She states she took these medications, but developed nausea and vomiting shortly thereafter. In the night, she started having pain in her chest radiating up into her jaw. She also reported that she has been waking up in the middle of night gasping for air. She has been told that she has obstructive sleep apnea and needs a CPAP but she has been unable to tolerate that. Ms. Nowak had an initial troponin, which was 0.00. She had 2 followup troponins which are also 0. She had an EKG, which showed a sinus rhythm, with no evidence of ischemia. She went on for a nuclear medicine stress test, per Radiology showed "findings suggestive of a [id number] size area of ischemia in the anterior wall." The patient was seen in consultation by Dr. Cantu at that point. He reviewed the nuclear medicine scan with Dr. Brody and they both agreed that this area noted by Radiology to be ischemic was not in fact ischemic. Dr. Cantu stated further that no cardiac catheterization was indicated. He did recommend that we continue to adjust her medications to help with her symptom management. He specifically recommended increasing isosorbide from 15 mg to 30 mg daily and also increasing metoprolol succinate from 12.5 mg to 25 mg daily. We also sought to rule out CHF. Her BNP was only 44. Her chest x-rays showed no infiltrate or evidence of pulmonary vascular congestion and she has no edema; therefore, diuretics were not added beyond her home hydrochlorothiazide. On speaking with the staff, when she came into the hospital, she seemed to complain more that she had great difficulty sleeping at night and that when she would go to lie down, she would wake up suddenly gasping for air. To me, she reported that her symptoms of pain in the chest and radiating into the jaw were associated with these episodes rather than with exertion. It is not quite clear what the story as this is different from what she described on admission as noted in Dr. Tan's note. Regardless, I do think that some of her symptoms are related to untreated obstructive sleep apnea. She has been monitored on the hospital via pulse oximetry overnight and found to qualify for home O2. I think this may help with her symptoms of NANDA though she would get much greater benefit from CPAP. She has not been able to tolerate that at home and is not willing to try that again. Ms. Nowak is doing much better this morning. She said she was able to sleep through the night, when I ask her why, she states that simply because she was so exhausted. She is eager for discharge to home and she is medically stable to do so. Ms. Nowak is medically stable for discharge to home today and to follow up with Dr. Brody and Dr. Parks. DISPOSITION: Home. DIET: Consistent carbohydrate. ACTIVITY: As tolerated. FOLLOWUP PLANS: 1. Please follow up with Dr. Rene Parks. The appointment has been made for 03/03/17 at 09:18 am. 2. Please follow up with Dr. Brody per previously arranged visit. 3. Please wear home O2 at night at 2 L nasal cannula. TIME SPENT: Approximately 75 minutes were spent on the discharge of this patient, more than half that time spent with the patient at the bedside reviewing the events leading up to this hospitalization, performing the physical examination, and reviewing the plan of care. KIMBERLY FAIR NP [id number]/[facility] #: [id number] [place]
== END 2017-02-23 10:35 | disposition home or self-care (01) | DRG 313 ==
LOC: ED 07:06 → MEDTELE 12:47 → OBSVTOIN 02-22 13:35
PROVIDERS: ADMIT Hospitalist; ATTEND Internal Medicine
DX: R07.9 Chest pain, unspecified (principal); E11.51 Type 2 diabetes mellitus with diabetic peripheral angiopathy without gangrene; G47.33 Obstructive sleep apnea (adult) (pediatric); I25.10 Atherosclerotic heart disease of native coronary artery without angina pectoris; E78.5 Hyperlipidemia, unspecified; I10 Essential (primary) hypertension; I35.0 Nonrheumatic aortic (valve) stenosis; J42 Unspecified chronic bronchitis; M19.90 Unspecified osteoarthritis, unspecified site; F17.210 Nicotine dependence, cigarettes, uncomplicated; E66.09 Other obesity due to excess calories; R68.84 Jaw pain; H91.90 Unspecified hearing loss, unspecified ear; R06.02 Shortness of breath; E11.36 Type 2 diabetes mellitus with diabetic cataract; R11.2 Nausea with vomiting, unspecified; Z95.820 Peripheral vascular angioplasty status with implants and grafts; Z88.1 Allergy status to other antibiotic agents; Z88.2 Allergy status to sulfonamides; Z88.6 Allergy status to analgesic agent; I25.2 Old myocardial infarction; Z99.81 Dependence on supplemental oxygen; Z88.8 Allergy status to other drugs, medicaments and biological substances; Q24.9 Congenital malformation of heart, unspecified; Z87.11 Personal history of peptic ulcer disease; Z87.442 Personal history of urinary calculi; Z87.440 Personal history of urinary (tract) infections; Z85.72 Personal history of non-Hodgkin lymphomas; Z90.49 Acquired absence of other specified parts of digestive tract; Z95.5 Presence of coronary angioplasty implant and graft; Z80.3 Family history of malignant neoplasm of breast; Z82.49 Family history of ischemic heart disease and other diseases of the circulatory system; Z80.6 Family history of leukemia; Z83.79 Family history of other diseases of the digestive system; Z68.37 Body mass index [BMI] 37.0-37.9, adult
CPT/HCPCS: 36415; 71010; 78452; 80053; 83605; 83880; 84484; 85025; 85610; 93005; 93017; 94762; 99283; A9270-GY; A9502; G0378; J1650; J2785

== ENCOUNTER 2017-03-02 02:16 | Emergency (ER) | payer MEDICARE, MEDICAID ==
[2017-03-02 02:43] VITALS: BP 116/48
== END 2017-03-02 03:30 | disposition left against medical advice (07) ==
LOC: ED 02:16
DX: R07.9 Chest pain, unspecified (principal); Z53.21 Procedure and treatment not carried out due to patient leaving prior to being seen by health care provider

== ENCOUNTER 2017-05-06 04:25 | Emergency (ER) | payer MEDICARE, MEDICAID ==
[2017-05-06] MEDS ORDERED: NS 0.9% 1000 ML* 1,000 ML IV ONE (05:04)
[2017-05-06] MEDS ORDERED: Ondansetron INJ* 2 MG/ML VIAL IV ONE (05:09)
[2017-05-06] MEDS ORDERED: HYDROmorphone* 1 MG/ML 1 ML SYR IV SLOW PU ONE (05:09)
[2017-05-06 05:46] LABS: Hematocrit 37 % (35-47); Hemoglobin 12.3 g/dl (12.0-16.0); Mean Corpuscular HGB Conc 33 g/dl (31-36); Mean Corpuscular Hemoglobin 29 pg (27-31); Mean Corpuscular Volume 86 fL (80-97); Mean Platelet Volume 9 um3 (7.4-10.4); Red Blood Count 4.32 10^6/ul (4.0-5.4); Red Cell Distribution Width 16 % (10.5-15); White Blood Count 10.2 10^3/ul (3.5-10.8)
[2017-05-06 05:58] LABS: Albumin 3.6 g/dL (3.2-5.2); BUN/Creatinine Ratio 22.7 (8-20); C Reactive Protein 37.16 mg/L (< 5.00); Calcium 9.2 mg/dL (8.6-10.3); EGFR African American 100.7 (>60); EGFR Non-African American 78.3 (>60); Globulin 2.8 g/dL (2-4); Total Bilirubin 0.4 mg/dL (0.2-1.0); Total Protein 6.4 g/dL (6.4-8.9)
[2017-05-06 06:00] LABS: Urine Bacteria Absent (Absent); Urine Bilirubin Negative (Negative); Urine Glucose Negative (Negative); Urine Nitrite Negative (Negative)
[2017-05-06] MEDS ORDERED: Iodixanol* (CONTRAST) 320 MG/ML 100 ML SDV IV ONE (07:03)
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
--- NOTE | 2017-05-06 08:21 | RAD ---
CLINICAL HISTORY: Left lower quadrant pain and vomiting. Relevant surgical history includes cholecystitis, appendectomy and "renal stones". COMPARISON: Most recent comparison CT is dated December 02, 2016 TECHNIQUE: Contrast enhanced CT examination of the abdomen and pelvis from the lung bases through the initial tuberosities. The patient received 100 mL Visipaque 320 intravenously prior to imaging.The patient received oral contrast as well prior to imaging. FINDINGS: VISUALIZED LUNG BASES: Again seen at the right lung base are 2 nodules measuring 4 and 8 mm unchanged from the previous CT examination. The location of these nodules so close to the lung base pleura indicate likely benignity. Otherwise the visualized lung bases are grossly clear. There is no pleural effusion. ABDOMEN AND PELVIS: Similar to prior CT examinations, the liver is homogenously hypodense. Along the anterior surface of the left lobe of the liver there is mild nodularity. There are no focal liver masses. The spleen is mildly enlarged measuring 12.2 cm in greatest axial dimension. The pancreas and adrenal glands are grossly normal in appearance. The gallbladder is normal. The kidneys are normal in appearance without focal mass, calcification or signs of hydronephrosis. The oral contrast has progressed as far as the proximal transverse colon. The small and large bowel are not distended. The appendix is not visualized consistent with the surgical history. There is no significant diverticular disease of the distal colon or signs of acute inflammatory change. There is no gross retroperitoneal or mesenteric lymphadenopathy. The pelvic viscera is normal in appearance. There is calcified atherosclerosis at the infrarenal abdominal aorta above the bifurcation that extends into the bilateral iliac arteries. The bilateral iliac arteries appear narrowed although they are not completely evaluated on this portal venous phase CT examination. Degenerative changes include multilevel loss of intervertebral disc height involving the lower thoracic and lumbar spine.There are no sinister bone lesions. IMPRESSION: 1. No CT findings that would there are clinically account for the patient's current presentation. 2. Likely hepatic statement ptosis and potential cirrhosis. 3. Appearance of calcified atherosclerosis narrowing the bilateral iliac arteries incompletely evaluated on this portal venous phase CT examination. Please correlate to signs and symptoms of lower extremity and pelvic arterial insufficiency. 4. Additional chronic, degenerative and iatrogenic findings described in the body the report.
[2017-05-06 09:57] VITALS: BP 93/68
--- NOTE | 2017-05-06 13:29 | ED ---
Pradip Omer Nikita, scribed for Vidal Avelar MD on 05/06/17 at 0927 . Progress - Progress Note Progress Note: This patient was signed out from Dr. Middleton, pending disposition, awaiting CT abdomen/pelvis. CT abdomen/pelvis reveals: 1. No CT findings that would there are clinically account for the patient's current presentation. 2. Likely hepatic statement ptosis and potential cirrhosis. 3. Appearance of calcified atherosclerosis narrowing the bilateral iliac arteries incompletely evaluated on this portal venous phase CT examination. Please correlate to signs and symptoms of lower extremity and pelvic arterial insufficiency. 4. Additional chronic, degenerative and iatrogenic findings described in the body the report. Ms. Nowak presented with abdominal pain and her W/U was unremarkable for any emergent condition. She was given a few days of pain meds and encouraged to F/ U if not improving or to return if worsening. She was D/C'd in stable condition with a diagnosis of abdominal pain. Course/Dx - Course Course Of Treatment: Pt is a 61 y/o F BIBA presents to ED with n/v/d onset yesterday. Pt has a known UTI with e coli, and is taking Ceftriaxone. Associated sx: worsening lower abd pain onset a week ago; upper abd pain onset more recently; chills; chest congestion. Smoker. Dr. Parks is her PCP. Pt given fluids, Dilauded, Zofran in ED. EKG was sinus dante, nml axis. Bloodwork is without significant abnormality except elevated CRP of 37.16. UA is negative for UTI. Pt will be SO to Dr. Avelar at shift change pending CT results. - Diagnoses Provider Diagnoses: abdominal pain The documentation as recorded by the Pradip tobias Nikita accurately reflects the service I personally performed and the decisions made by Valentino be Richard L, MD.
== END 2017-05-06 09:55 ==
LOC: ED 04:25
DX: R10.30 Lower abdominal pain, unspecified (principal); N39.0 Urinary tract infection, site not specified; B96.20 Unspecified Escherichia coli [E. coli] as the cause of diseases classified elsewhere; F17.210 Nicotine dependence, cigarettes, uncomplicated; Z85.72 Personal history of non-Hodgkin lymphomas; Z88.0 Allergy status to penicillin; Z88.2 Allergy status to sulfonamides; Z88.5 Allergy status to narcotic agent; M19.90 Unspecified osteoarthritis, unspecified site
CPT/HCPCS: 36415; 74177; 80053; 81003; 81015; 82150; 83605; 83690; 84484; 85025; 86140; 87040; 87086; 93005; 96360; 96374; 96375; 99284; J1170; J2405; Q9967

== ENCOUNTER 2017-05-16 14:02 | Emergency (ER) | payer MEDICARE, MEDICAID ==
[2017-05-16 14:10] VITALS: BP 149/54
[2017-05-16] MEDS ORDERED: NS 0.9% 1000 ML* 1,000 ML IV ONE (16:30)
[2017-05-16] MEDS ORDERED: Ondansetron INJ* 2 MG/ML VIAL IV ONE (16:30)
[2017-05-16] MEDS ORDERED: Albuterol/Ipratropium NEB.SOL* Albuterol 2.5 MG/Ipratropium 0.5 MG 3 ML INH ONE (16:32)
[2017-05-16 17:02] LABS: Hematocrit 37 % (35-47); Hemoglobin 12.4 g/dl (12.0-16.0); Mean Corpuscular HGB Conc 33 g/dl (31-36); Mean Corpuscular Hemoglobin 28 pg (27-31); Mean Corpuscular Volume 86 fL (80-97); Mean Platelet Volume 9 um3 (7.4-10.4); Red Blood Count 4.35 10^6/ul (4.0-5.4); Red Cell Distribution Width 16 % (10.5-15)
[2017-05-16 17:23] LABS: Albumin 3.5 g/dL (3.2-5.2); BUN/Creatinine Ratio 14.7 (8-20); C Reactive Protein 52.16 mg/L (< 5.00); Calcium 8.8 mg/dL (8.6-10.3); EGFR African American 100.7 (>60); EGFR Non-African American 78.3 (>60); Globulin 3.4 g/dL (2-4); Potassium 3.8 mmol/L (3.5-5.0); Total Bilirubin 0.6 mg/dL (0.2-1.0); Total Protein 6.9 g/dL (6.4-8.9)
--- NOTE | 2017-05-16 17:40 | RAD ---
HISTORY: Cough, shortness of breath, pneumonia, CHF COMPARISONS: February 21, 2017 VIEWS: 4: Frontal dual-energy and lateral views of the chest. FINDINGS: CARDIOMEDIASTINAL SILHOUETTE: The cardiomediastinal silhouette is normal. CHANTELL: The chantell are normal. PLEURA: The costophrenic angles are sharp. No pleural abnormalities are noted. LUNG PARENCHYMA: There is hyperinflation with flattening of the diaphragm and expansion of the AP diameter of the chest. ABDOMEN: The upper abdomen is clear. There is no subphrenic gas. BONES AND SOFT TISSUES: Degenerative changes are noted OTHER: None. IMPRESSION: HYPERINFLATION, CONSISTENT WITH COPD. NO ACTIVE CARDIOPULMONARY DISEASE.
[2017-05-16] MEDS ORDERED: predniSONE TAB* 20 MG PO ONE (18:34)
[2017-05-16 18:56] LABS: Urine Bilirubin Negative (Negative); Urine Glucose Negative (Negative); Urine Nitrite Negative (Negative)
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
== END 2017-05-16 19:05 | disposition home or self-care (01) ==
LOC: ED 14:02
DX: J40 Bronchitis, not specified as acute or chronic (principal); R10.30 Lower abdominal pain, unspecified; I25.2 Old myocardial infarction; F17.210 Nicotine dependence, cigarettes, uncomplicated; E11.9 Type 2 diabetes mellitus without complications; I50.9 Heart failure, unspecified; Z88.1 Allergy status to other antibiotic agents; Z88.5 Allergy status to narcotic agent; Z88.0 Allergy status to penicillin; Z88.2 Allergy status to sulfonamides; E78.5 Hyperlipidemia, unspecified; Z85.72 Personal history of non-Hodgkin lymphomas
CPT/HCPCS: 36415; 71020; 80053; 81003; 83605; 83690; 83880; 84484; 85025; 86140; 87040; 93005; 94640; 94760; 96360; 96374; 99282; A9270-GY; J2405; J7512

== ENCOUNTER 2017-08-07 16:06 | Emergency (ER) | payer MEDICARE, MEDICAID ==
[2017-08-07 17:23] LABS: Hematocrit 39 % (35-47); Hemoglobin 12.9 g/dl (12.0-16.0); Mean Corpuscular HGB Conc 33 g/dl (31-36); Mean Corpuscular Hemoglobin 28 pg (27-31); Mean Corpuscular Volume 85 fL (80-97); Mean Platelet Volume 9 um3 (7.4-10.4); Red Blood Count 4.58 10^6/ul (4.0-5.4); Red Cell Distribution Width 15 % (10.5-15); White Blood Count 10.6 10^3/ul (3.5-10.8)
[2017-08-07 17:34] LABS: Albumin 3.5 g/dL (3.2-5.2); EGFR African American 93.5 (>60); EGFR Non-African American 72.7 (>60); Globulin 3.3 g/dL (2-4); Potassium 3.4 mmol/L (3.5-5.0); Total Bilirubin 0.5 mg/dL (0.2-1.0); Total Protein 6.8 g/dL (6.4-8.9)
[2017-08-07] MEDS ORDERED: Ondansetron ODT TAB* 4 MG PO ONE ×2 (17:39→22:35)
[2017-08-07] MEDS ORDERED: oxyCODONE TAB* 5 MG TAB PO ONE ×2 (17:39→22:34)
[2017-08-07 19:38] LABS: Erythrocyte Sed Rate 43 mm/Hr (0-30)
[2017-08-07] MEDS ORDERED: Baclofen TAB* 20 MG PO ONE (20:11)
[2017-08-07] MEDS ORDERED: Diazepam SYRINGE* 5 MG/ML 2 ML SYRINGE (10 MG total) IM ONE (20:37)
--- NOTE | 2017-08-07 22:06 | RAD ---
HISTORY: Back pain, urinary incontinence March 23, 2015 COMPARISONS: September 16, 2014 TECHNIQUE: The following sequences were obtained of the lumbar spine: Sagittal and axial T1- and T2-weighted images, coronal T2-weighted images, and sagittal STIR images. FINDINGS: The study is limited by patient motion artifact. SPINAL CORD, CONUS, AND CAUDA EQUINA: The visualized spinal cord, conus, and cauda equina are normal in caliber, position, and signal intensity. ALIGNMENT: The alignment is normal. VERTEBRAL BODIES: There is mild multilevel anterolateral marginal osteophyte formation. JOINTS: There is facet hypertrophic change along the lower lumbar spine MUSCULATURE: There is mild fatty infiltration INTERVERTEBRAL DISCS: There is diffuse loss of intervertebral disc height and T2 signal throughout the spine. AXIAL IMAGES: T10-T11: There is no significant neural foraminal narrowing or central canal stenosis. T11-T12: There is no significant neural foraminal narrowing or central canal stenosis. T12-L1: There is no disc herniation, spinal stenosis, or neuroforaminal narrowing. L1-L2: There is no disc herniation, spinal stenosis, or neuroforaminal narrowing. L2-L3: There is no disc herniation, spinal stenosis, or neuroforaminal narrowing. L3-L4: There is no disc herniation, spinal stenosis, or neuroforaminal narrowing. L4-L5: There is a broad-based disc bulge. There is no significant neural foraminal narrowing or central canal stenosis. L5-S1: There is broad-based disc bulge. There is marginal osteophyte formation at the neural foramina bilaterally. There is moderate left neural foraminal narrowing. There is a stable small central disc protrusion versus posterior osteophyte. There is no significant central canal stenosis. SOFT TISSUES: The visualized soft tissues of the abdomen are unremarkable. OTHER: The appearance is similar to the 2015 examination. IMPRESSION: DEGENERATIVE DISC DISEASE AND OSTEOARTHRITIS. THERE IS NEURAL FORAMINAL NARROWING DESCRIBED ABOVE. THERE IS NO SIGNIFICANT CENTRAL CANAL STENOSIS.
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
[2017-08-07] MEDS ORDERED: Lidocaine PATCH 5%* 1 PATCH TRANSDERM ONE (22:32)
[2017-08-07] MEDS ORDERED: Dexamethasone TAB* 4 MG PO ONE (22:33)
[2017-08-07 23:06] VITALS: BP 130/53
== END 2017-08-07 23:03 | disposition home or self-care (01) ==
LOC: ED 16:06
DX: M54.9 Dorsalgia, unspecified (principal); Z85.72 Personal history of non-Hodgkin lymphomas; E78.00 Pure hypercholesterolemia, unspecified
CPT/HCPCS: 36415; 72148; 80053; 85025; 85652; 86141; 96372; 99283; A9270-GY; J3360; J8540

== ENCOUNTER 2017-10-07 06:36 | Emergency (ER) | payer MEDICARE, MEDICAID ==
[2017-10-07] MEDS ORDERED: fentaNYL* 50 MCG/ML 2 ML VIAL (100 MCG VIAL) IV SLOW PU ONE (07:20)
[2017-10-07] MEDS ORDERED: Orphenadrine Citrate IV* 30 MG/ML 2 ML VIAL IV ONE (07:20)
--- NOTE | 2017-10-07 09:08 | RAD ---
Indication: Back pain/spasm post fall. Comparison: May 16, 2017 Technique: AP and lateral views thoracic spine. Report: Negative for thoracic spine fracture or malalignment. Diffuse degenerative spondylosis and moderate in severity without significant interval change compared with the prior exam. Unremarkable paraspinal soft tissue contours. IMPRESSION: Negative for thoracic spine fracture.
--- NOTE | 2017-10-07 09:11 | RAD ---
Indication: Back pain and spasms post fall. Remote L4-S1 laminectomy. Comparison: August 07, 2017 MRI. Technique: AP and lateral views lumbar sacral spine. Report: Alignment is anatomic. No cortical disruption or trabecular impaction to indicate a vertebral body fracture. Minimal multilevel vertebral endplate osteophytosis. Moderate L5-S1 disc space narrowing without change. Mild facet joint osteoarthritis most prominent at L4-L5 and L5-S1. Vascular calcifications. Unremarkable soft tissue contours. IMPRESSION: No radiographic evidence for traumatic lumbar sacral spine injury. Multilevel degenerative spondylosis and facet joint osteoarthritis without significant change.
[2017-10-07 11:01] VITALS: BP 117/62
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
== END 2017-10-07 11:01 | disposition home or self-care (01) ==
LOC: ED 06:36
DX: M54.9 Dorsalgia, unspecified (principal); F17.210 Nicotine dependence, cigarettes, uncomplicated; Z88.0 Allergy status to penicillin
CPT/HCPCS: 72070; 72100; 96374; 96375; 99285; J2360; J3010

== ENCOUNTER 2017-11-07 08:48 | Observation (INO) | payer MEDICARE, MEDICAID ==
[2017-11-07 09:24] LABS: Hematocrit 39 % (35-47); Hemoglobin 12.8 g/dl (12.0-16.0); Mean Corpuscular HGB Conc 33 g/dl (31-36); Mean Corpuscular Hemoglobin 28 pg (27-31); Mean Corpuscular Volume 85 fL (80-97); Mean Platelet Volume 9 um3 (7.4-10.4); Platelet Count 180 10^3/ul (150-450); Red Blood Count 4.53 10^6/ul (4.0-5.4); Red Cell Distribution Width 16 % (10.5-15); White Blood Count 11.1 10^3/ul (3.5-10.8)
[2017-11-07 09:49] LABS: EGFR Non-African American 76.9 (>60)
--- NOTE | 2017-11-07 09:53 | RAD ---
Indication: Chest pain. Coronary artery disease. Comparison: May 16, 2017 Technique: Upright AP 0917 hours Report: Elevated lung volumes. Accounting for superimposed soft tissues with large body habitus the lungs and pleural spaces are clear. Negative for pneumothorax. Mild cardiomegaly. Unremarkable central pulmonary vasculature and mediastinal contours. IMPRESSION: Stigmata of probable obstructive lung disease. Mild cardiomegaly. No acute pulmonary or cardiac process evident.
[2017-11-07 10:13] LABS: ABS Basophils 0.1 10^3/ul (0-0.2); ABS Eosinophils 0.2 10^3/ul (0-0.6); ABS Lymphocytes 1.3 10^3/ul (1.0-4.8); ABS Monocytes 0.5 10^3/ul (0-0.8); ABS Nucleated RBC 0 10^3/ul; Eosinophil % 1.7 % (0-6); Nucleated Red Blood Cells % 0
[2017-11-07] MEDS ORDERED: NS 0.9% 1000 ML* 1,000 ML IV ONE (10:44)
[2017-11-07 11:23] LABS: Urine Appearance Cloudy; Urine Blood Negative (Negative); Urine Color Yellow; Urine Ketones Negative (Negative); Urine Protein Negative (Negative); Urine Urobilinogen Negative (Negative)
[2017-11-07] MEDS ORDERED: Nitroglycerin TAB 0.4 MG* 0.4 MG TAB SL ONE ×2 (11:23→21:34)
[2017-11-07] MEDS ORDERED: Nitroglycerin TAB 0.4 MG* 0.4 MG TAB ONE (11:24)
[2017-11-07] MEDS ORDERED: Ondansetron INJ* 2 MG/ML VIAL IV ONE (11:38)
[2017-11-07] MEDS ORDERED: Nitroglycerin 2% OINT* 1 GM PAK TOPICAL ONE (11:49)
[2017-11-07] MEDS ORDERED: Baclofen TAB* 20 MG PO ONE (12:15)
[2017-11-07] MEDS ORDERED: Ondansetron INJ* 2 MG/ML VIAL IV PRN (13:15)
[2017-11-07] MEDS ORDERED: Dextrose 50% Syringe 50 ML* 25 GM/50 ML SYRINGE IV PUSH PRN (13:15)
[2017-11-07] MEDS ORDERED: diPHENhydraMINE PO* 50 MG PO PRN (13:20)
[2017-11-07] MEDS ORDERED: Lidocaine 2% VISCOUS* 15 ML UDC PO ONE (13:23)
[2017-11-07] MEDS ORDERED: Al Hydrox/Mg Hydrox/Simet LIQ* 30 ML UDC PO ONE (13:23)
[2017-11-07] MEDS: Heparin VIAL(*) 5000 UNITS/ML VIAL (FIVE THOUSAND) SUBCUT SCH ×2 (15:02→20:49)
[2017-11-07 15:47] LABS: INR 0.98 (0.77-1.02)
[2017-11-07] MEDS: Baclofen TAB* 20 MG PO SCH ×2 (16:09→20:49)
[2017-11-07] MEDS ORDERED: LORazepam INJ* 2 MG/ML 1 ML VIAL IV PUSH ONE (16:51)
[2017-11-07] MEDS ORDERED: HYDROmorphone INJ* 2 MG/ML CARPUJECT SYRINGE IV SLOW PU ONE (16:52)
[2017-11-07] MEDS ORDERED: Cyclobenzaprine TAB* 10 MG PO ONE (16:52)
[2017-11-07] MEDS ORDERED: HYDROmorphone INJ* 1 MG/ML CARPUJECT SYRINGE ONE (16:55)
[2017-11-07] MEDS ORDERED: LORazepam INJ* 2 MG/ML 1 ML VIAL ONE (16:55)
[2017-11-07] MEDS: Insulin LISPRO* 1 UNITS UNIT SUBCUT SCH (18:10)
[2017-11-07] MEDS: Lisinopril TAB* 10 MG PO SCH (20:48)
[2017-11-07] MEDS ORDERED: PRAMIPEXOLE DI HCL 1.5 MG PO SCH (21:00)
--- NOTE | 2017-11-07 21:07 | HP ---
CC: Dr. Byrne* HISTORY AND PHYSICAL: DATE OF ADMISSION: 11/07/17 PRIMARY CARE PROVIDER: Dr. Byrne. ATTENDING PHYSICIAN WHILE IN THE HOSPITAL: Dr. Kraig Prajapati* (report being dictated by Enrique Aragon NP). CHIEF COMPLAINT: Chest pain. HISTORY OF PRESENT ILLNESS: Ms. Nowak is a 62-year-old female patient with multiple medical problems. She has a history of diabetes, GERD, CAD, hypertension, hyperlipidemia. She has [id number] aortic stenosis, cirrhosis, degenerative disk disease, NANDA, restless legs syndrome, PAD, and arthritis. She comes in to our ER today. She says that she got up this morning around 04:30, she was doing well, doing things around the house, she was tired, and around 6 went back to sleep in a recliner, woke up about 30 minutes later and when she came to, she started having some chest discomfort in the center of her chest radiating into her jaw, down her left arm. She felt sweaty, nauseous. It lasted 10 minutes, took a nitro, and it went away. She did not describe any abdominal pain, no burning discomfort. She says that since her heart catheterization in March, she has been doing well and not having any chest discomfort like this and no exertional pain in her chest. She says she was feeling well after taking the nitro. She thought things were okay. She got up after about 10 minutes sitting in the chair waiting for the chest pain to go away, walked to the door, got another episode of having chest tightness, heaviness, going up to the jaw, down the arm, some sweatiness, and nausea. She was concerned this is the second episode. She went down to see the nurse at [facility], took another nitro, the pain did go away, but the nurse there was concerned because of her history and said that she should go the hospital to be evaluated and the patient did call an ambulance. The patient denies having any fevers, chills. No vomiting or diarrhea. No abdominal pain. She denies having any recent trips or travel. There is no shortness of breath now. She did have 2 episodes of chest discomfort in the ED as well. Again, because of her significant and complex cardiac history, we were asked to evaluate for admission. PAST MEDICAL HISTORY: Significant for: 1. Diabetes. 2. GERD. 3. CAD. 4. Hypertension. 5. Hyperlipidemia. 6. Qdsg-jw-wnpoxptx aortic stenosis. 7. Cirrhosis. 8. Degenerative disk disease. 9. NANDA, she does not wear a mask. 10. Restless legs syndrome. 11. PAD. 12. Osteoarthritis. PAST SURGICAL HISTORY: The patient has had: 1. Laminectomy. 2. Cholecystectomy. 3. Laparotomy. 4. Cardiac catheterization x3. 5. Appendectomy. 6. Tubal ligation. MEDICATIONS: Home medications include: 1. Glucophage 500 mg p.o. b.i.d. 2. Mirapex 1.5 mg p.o. at bedtime. 3. Vitamin D 1000 units daily. 4. Multivitamin 1 tablet daily. 5. Lisinopril 20 mg p.o. b.i.d. 6. Benadryl 50 mg every 6 hours as needed. 7. Protonix 40 mg daily. 8. Nitro 0.4 mg sublingual every 5 minutes x3 for chest pain. 9. Toprol-XL 12.5 mg daily. 10. Imdur 15 mg daily. 11. Hydrochlorothiazide 50 mg daily. 12. Ferrous sulfate 325 mg p.o. daily. 13. Calcium carbonate 1 tablet p.o. b.i.d. 14. Baclofen 20 mg p.o. t.i.d. 15. Lipitor 40 mg p.o. daily. 16. Aspirin 81 mg daily. 17. Fosamax 70 mg p.o. weekly. ALLERGIES TO MEDICATIONS: Include TYLENOL, AMOXICILLIN, CYMBALTA, BYDUREON, NEURONTIN, HYDROCODONE, LEVAQUIN, MORPHINE, OXYCODONE, LYRICA, JANUVIA, SULFA, TRAMADOL. FAMILY HISTORY: Mother had a history of cirrhosis as well with OLSON. Father had a history of lymphoma. SOCIAL HISTORY: She is a former smoker, quit over 20 years ago. She does not drink alcohol. Surrogate decision maker is her son. REVIEW OF SYSTEMS: There is no documented fever. She denied having any significant weight change. There was no double vision. She denies having any ear discharge. There is no rhinorrhea. There is no sore throat. No thyroid enlargement. There was chest pain from my HPI. There is no orthopnea. There was no nocturnal dyspnea. There was no abdominal pain. There was nausea, there was no vomiting. No dysuria, no frequency. No seizure, there was no loss of consciousness. No pruritus and no skin ulcerations. Review of 14 systems was completed, all others negative. PHYSICAL EXAMINATION GENERAL: At this time, Ms. Nowak is a 62-year-old female patient. She is sitting in the ED stretcher. She does not appear to be in any acute distress. VITAL SIGNS: Blood pressure 118/56, pulse 64, respirations 18, O2 sat 93%, temperature 97.8. HEENT: Head: Atraumatic, normocephalic. Eyes: EOMs are intact. Sclerae anicteric and not pale. Throat: Oral mucosa appears to be moist. No oropharyngeal erythema. NECK: Supple. LUNGS: Clear to auscultation bilaterally. No wheezes, rales, or rhonchi. HEART: Sounds S1, S2. Regular rate and rhythm. No murmurs, rubs, or gallops. ABDOMEN: Soft, flat, and nontender. Bowel sounds are present. EXTREMITIES: Pulses were 2+ throughout. She is moving all 4 extremities with 5 /5 strength. NEUROLOGICAL: She is awake, alert, oriented x3. No gross focal deficits. SKIN: Intact. DIAGNOSTIC STUDIES/LAB DATA: WBC 11.1, RBC of 4.53, hemoglobin of 12.8, hematocrit 39, platelet count of 180. Sodium 130, potassium 3.8, chloride 100, bicarb 23, BUN 10, creatinine 0.76, glucose 298, lactate 2.1, calcium 9.3, mag was 1.9. Total bili 0.5, AST 29, ALT 31. CK 24, CK-MB 1.2. Troponin 0. BNP 72. TSH normal. Urine showed 2+ leukocyte esterase, 2+ wbc's, 1+ bacteria. She had a chest x-ray obtained today, which revealed stigmata of probable chronic lung disease, mild cardiomegaly, no acute pulmonary or cardiac process evident. She did have several EKGs, first one was at 12 after 9 this morning, shows a normal sinus rhythm, rate of 74. No ST elevations or T-wave inversions. Repeat EKG at 11 shows sinus rhythm. She had T-wave flattening now in V5 and V6. No ST elevations or inversions were noted. Repeat EKG at 01:08 showed again T-wave flattening at V5 and V6, but no ST elevations were noted at this point and no inversions. Repeat EKG was sinus dante at 57. Old medical records were reviewed. ASSESSMENT AND PLAN: Ms. Nowak is a 62-year-old female patient with multiple medical problems coming in to the ED today with complaints of chest discomfort. We were asked to evaluate for admission. She will be admitted under observation status for: 1. Chest pain. Again, the concern here is that this could represent acute coronary syndrome. She has significant risk factors for this. The plan would be to go ahead and continue her aspirin, statin, and beta-giorgi therapy. Get a stress test tomorrow morning. Repeat troponin, serial enzymes, and get another EKG in the morning and again at 1500 today and follow her closely on telemetry and continue to monitor. I am also going to give her GI cocktail. This could be of lower suspicion that this is gastrointestinal related, but I think we need again do the stress test and rule her out from a cardiac standpoint. If the stress test is abnormal, if she spikes her troponins, with EKG changes, we will get Cardiology input. 2. Diabetes. She will be on a lispro sliding scale. 3. Gastroesophageal reflux disease. I will order PPI therapy. 4. Coronary artery disease. She is on aspirin, statin, and beta giorgi. 5. Hypertension. Continue meds as prescribed. 6. Hyperlipidemia. Continue statin therapy. 7. Aortic stenosis. Follow with her primary allied health professional. 8. Nonalcoholic steatohepatitis. Follow with Dr. Gillette, her primary GI specialist. 9. Degenerative disk disease and arthritis. Continue her p.r.n. baclofen as prescribed. 10. Obstructive sleep apnea. Follow with her primary, she is noncompliant with her mask. 11. Restless legs syndrome. Continue Mirapex. 12. Peripheral arterial disease. Continue aspirin and her Lipitor, it is stable at this point. 13. DVT prophylaxis. Heparin subcu has been ordered. 14. Code status. Full code. 15. Fluids, electrolytes, and nutrition. She can have a heart-healthy diet with no caffeine. TIME SPENT: On admission 60 minutes, greater than half the time spent face-to- face with the patient obtaining my history and physical. Other half the time spent going over the plan of care with the patient and implementing the plan of care. I did discuss the plan of care with my attending, Dr. Prajapati; he is in agreement. ENRIQUE ARAGON, APPRENTICE COOK [id number]/[facility] #: [id number] GASPER
[2017-11-07] MEDS ORDERED: PROCHLORPERAZINE INJ 5 MG/ML 2 ML VIAL IV PRN (21:32)
[2017-11-08] MEDS: Heparin VIAL(*) 5000 UNITS/ML VIAL (FIVE THOUSAND) SUBCUT SCH ×2 (05:29→13:31)
[2017-11-08 06:05] LABS: ABS Basophils 0 10^3/ul (0-0.2); ABS Eosinophils 0.2 10^3/ul (0-0.6); ABS Lymphocytes 1.5 10^3/ul (1.0-4.8); ABS Monocytes 0.4 10^3/ul (0-0.8); ABS Neutrophils 6.9 10^3/ul (1.5-7.7); ABS Nucleated RBC 0 10^3/ul; Eosinophil % 1.8 % (0-6); Hematocrit 38 % (35-47); Hemoglobin 12.6 g/dl (12.0-16.0); Lymphocyte % 16.1 % (25-47); Mean Corpuscular HGB Conc 33 g/dl (31-36); Mean Corpuscular Hemoglobin 28 pg (27-31); Mean Corpuscular Volume 85 fL (80-97); Mean Platelet Volume 10 um3 (7.4-10.4); Nucleated Red Blood Cells % 0.1; Platelet Count 168 10^3/ul (150-450); Red Blood Count 4.43 10^6/ul (4.0-5.4); Red Cell Distribution Width 16 % (10.5-15)
[2017-11-08 06:09] LABS: INR 0.97 (0.77-1.02)
[2017-11-08 06:18] LABS: EGFR Non-African American 72.4 (>60)
[2017-11-08] MEDS ORDERED: Atorvastatin* 40 MG TAB PO SCH (09:00)
[2017-11-08] MEDS ORDERED: Omeprazole CAP* 20 MG PO SCH (09:00)
[2017-11-08] MEDS ORDERED: ISOSORBIDE MONONITRATE 15 MG PO SCH (09:00)
[2017-11-08] MEDS ORDERED: Aspirin EC Low Dose* 81 MG TAB.EC PO SCH (09:00)
[2017-11-08] MEDS ORDERED: Metoprolol Succinate XL TAB* 25 MG PO SCH (09:00)
[2017-11-08] MEDS ORDERED: Ferrous Sulfate TAB* 325 MG PO SCH (09:00)
[2017-11-08] MEDS ORDERED: Regadenoson* 0.4 MG/5 ML SYRINGE ONE (09:26)
[2017-11-08] MEDS: Insulin LISPRO* 1 UNITS UNIT SUBCUT SCH ×2 (10:28→13:30)
[2017-11-08] MEDS: Baclofen TAB* 20 MG PO SCH ×2 (10:34→13:31)
[2017-11-08] MEDS: Lisinopril TAB* 10 MG PO SCH (10:34)
--- NOTE | 2017-11-08 10:54 | RAD ---
INDICATION: Chest pain and shortness of breath in a woman with multiple cardiac risk factors COMPARISON: Multiple previous similar cardiac scans, most recently dated February 22, 2017 which yielded intermediate risk due to anterior wall ischemia TECHNIQUE: SPECT imaging was performed. Rest images were acquired following the intravenous injection of 10.5 millicuries of technetium 99m tetrofosmin at 0640 hours. At 0922 hours stress images were acquired following the intravenous administration of 25.8 millicuries of technetium 99m tetrofosmin. The patient received intravenous Lexiscan prior to the stress image acquisition. FINDINGS: There is a small degree of uptake deficiency at the anterior septal myocardium seen both on the rest and stress view images. This appearance become slightly worse on the stress view. The cardiac chamber size is normal. There are no wall motion abnormalities. The ejection fraction is calculated at 67% during stress. IMPRESSION: Small perfusion defect seen at the anteroseptal myocardium becomes slightly worse on the stress view images indicating a degree of reversibility. ASSESSMENT: Intermediate risk Based on imaging criteria from ACC/AHA 2002 Guideline Update for the Management of Patients With Chronic Stable Angina Table 23. Noninvasive Risk Stratification.
[2017-11-08 12:06] VITALS: BP 118/89
--- NOTE | 2017-11-08 13:42 | PN ---
Subjective Date of Service: 11/08/17 Interval History: Denies chest pain at this time, c/o lower back spasms. Denies shortness of breath, or abd pain. denies n/v/d. Family History: Unchanged from Admission Social History: Unchanged from Admission Past Medical History: Unchanged from Admission Objective Active Medications: Aspirin (Aspirin Ec Low Dose*) 81 mg PO DAILY [facility] Last Admin: 11/08/17 10:34 Dose: 81 mg Atorvastatin Calcium (Lipitor*) 40 mg PO DAILY [facility] Last Admin: 11/08/17 10:34 Dose: 40 mg Baclofen (Lioresal Tab*) 20 mg PO TID [facility] Last Admin: 11/08/17 13:31 Dose: 20 mg Dextrose (D50w Syringe 50 Ml*) 12.5 gm IV PUSH .FOR FS < 60 - SS PRN PRN Reason: FS < 60 Diphenhydramine HCl (Benadryl Po*) 50 mg PO Q6H PRN PRN Reason: Allergy Symptoms Ferrous Sulfate (Ferrous Sulfate Tab*) 325 mg PO DAILY [facility] Last Admin: 11/08/17 10:34 Dose: 325 mg Heparin Sodium (Porcine) (Heparin Vial(*)) 5,000 units SUBCUT Q8HR [facility] Last Admin: 11/08/17 13:31 Dose: Not Given Insulin Human Lispro (Humalog*) 0 units SUBCUT AC [facility] PRN Reason: Protocol Last Admin: 11/08/17 13:30 Dose: 6 units Lisinopril (Prinivil Tab*) 20 mg PO BID [facility] Last Admin: 11/08/17 10:34 Dose: 20 mg Metoprolol Succinate (Toprol Xl Tab*) 12.5 mg PO DAILY [facility] Last Admin: 11/08/17 10:34 Dose: 12.5 mg Non Formulary Med* Isosorbide Moninitrate Er 15mg Tab 15 admin PO DAILY [facility] Last Admin: 11/08/17 10:34 Dose: Not Given Non-Formulary Medication (Pramipexole Di-Hcl [Mirapex Er]) 1.5 mg PO 2100 [facility] Last Admin: 11/07/17 20:49 Dose: Not Given Omeprazole (Prilosec Cap*) 20 mg PO DAILY [facility] Last Admin: 11/08/17 10:34 Dose: 20 mg Ondansetron HCl (Zofran Inj*) 4 mg IV Q6H PRN PRN Reason: NAUSEA Last Admin: 11/07/17 20:49 Dose: 4 mg Prochlorperazine Edisylate (Compazine Inj*) 5 mg IV Q6H PRN PRN Reason: NAUSEA/VOMITING Last Admin: 11/07/17 21:50 Dose: 5 mg Vital Signs - 8 hr 11/08/17 11/08/17 07:21 10:55 Temperature 97.1 F 97.1 F Pulse Rate 59 72 Respiratory 16 18 Rate Blood Pressure 140/62 118/89 (mmHg) O2 Sat by Pulse 94 98 Oximetry Oxygen Devices in Use Now: None Appearance: appears restless lying in bed, no c/o pain. Eyes: No Scleral Icterus Ears/Nose/Mouth/Throat: Clear Oropharnyx, Mucous Membranes Moist Neck: NL Appearance and Movements; NL JVP, Trachea Midline Respiratory: Symmetrical Chest Expansion and Respiratory Effort, Clear to Auscultation Cardiovascular: NL Sounds; No Murmurs; No JVD, No Edema Abdominal: NL Sounds; No Tenderness; No Distention Extremities: No Edema, No Clubbing, Cyanosis Skin: No Rash or Ulcers Neurological: Alert and Oriented x 3 Nutrition: Taking PO's Result Diagrams: 11/08/17 05:17 11/08/17 05:16 Assess/Plan/Problems-Billing Assessment: Ms. Pradhan is a 62 y.o female that presented to the Emergency room with 2 episodes of chest pain. Ms. pradhan carries a history of CAD, HTN, DM ,GERD, Aortic stenosis. - Patient Problems (1) Chest pain Current Visit: No Status: Acute Code(s): R07.9 - CHEST PAIN, UNSPECIFIED SNOMED Code(s): 76936727 Comment: - Resolved. - Trops negative ~ nuclear stress test ~ low risk, there was a small area of defect in the anteroseptal wall, discussed with patient ~ will follow up with DR. Sorensen as an outpatient. ~ Ambulated in the the hallways no chest pain ~ feels well (2) Diabetes Current Visit: No Status: Acute Code(s): E11.9 - TYPE 2 DIABETES MELLITUS WITHOUT COMPLICATIONS SNOMED Code(s): 21411260 Comment: - BGs ~ 184-259. - Resume home metformin (3) Hyperlipidemia Current Visit: No Status: Acute Code(s): E78.5 - HYPERLIPIDEMIA, UNSPECIFIED SNOMED Code(s): 82631398 Comment: - Continue atorvastatin. (4) Hypertension Current Visit: No Status: Acute Code(s): I10 - ESSENTIAL (PRIMARY) HYPERTENSION SNOMED Code(s): 40118773 Comment: - SBP 118-145. - Continue metoprolol, isosorbide and lisinopril. (5) NANDA (obstructive sleep apnea) Current Visit: No Status: Acute Code(s): G47.33 - OBSTRUCTIVE SLEEP APNEA ( ADULT) (PEDIATRIC) SNOMED Code(s): 36304266 Comment: not on CPAP at home (6) DVT prophylaxis Current Visit: No Status: Acute Code(s): DSG4982 - SNOMED Code(s): 083662683 Comment: - Lovenox SQ. (7) DNR (do not resuscitate) Current Visit: No Status: Acute Status and Disposition: discharge home
--- NOTE | 2017-11-09 10:20 | RAD ---
ADDENDUM Assessment: Low risk Discussed with Dr. Brody at 1250 hours on November 08, 2017. <Electronically signed by Isaiah Shaw MD in OV>11/08/17 1253 Dictated by: Isaiah Shaw MD Dictated Date/Time:11/08/17 1253 Transcribed Date/Time: 11/08/17 1252 Copy to: Terrance Dwyer MD; Rene Parks MD; Enrique Aragon LEGAL ARBITRATOR; Kraig Prajapati MD INDICATION: Chest pain and shortness of breath in a woman with multiple cardiac risk factors COMPARISON: Multiple previous similar cardiac scans, most recently dated January which yielded intermediate risk due to anterior wall ischemia TECHNIQUE: SPECT imaging was performed. Rest images were acquired following the intravenous injection of 10.5 millicuries of technetium 99m tetrofosmin at 0640 hours. At 0922 hours stress images were acquired following the intravenous administration of 25.8 millicuries of technetium 99m tetrofosmin. The patient received intravenous Lexiscan prior to the stress image acquisition. FINDINGS: There is a small degree of uptake deficiency at the anterior septal myocardium seen both on the rest and stress view images. This appearance become slightly worse on the stress view. The cardiac chamber size is normal. There are no wall motion abnormalities. The ejection fraction is calculated at 67% during stress. IMPRESSION: Small perfusion defect seen at the anteroseptal myocardium becomes slightly worse on the stress view images indicating a degree of reversibility. ASSESSMENT: Intermediate risk Based on imaging criteria from ACC/AHA 2002 Guideline Update for the Management of Patients With Chronic Stable Angina Table 23. Noninvasive Risk Stratification. MTDD
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
--- NOTE | 2017-11-09 16:28 | DS ---
CC: Dr. Rene Parks* DISCHARGE SUMMARY: DATE OF ADMISSION: 11/07/17 DATE OF DISCHARGE: 11/08/17. PROVIDER: Francisca Mcadams NP. ATTENDING PHYSICIAN: Dr. Adrianna Georges* (dictated by Francisca Mcadams NP). PRIMARY CARE PROVIDER: Dr. Rene Parks. PRIMARY DIAGNOSIS: Chest pain. SECONDARY DIAGNOSES: 1. Diabetes. 2. Gastroesophageal reflux disease. 3. Coronary artery disease. 4. Hypertension. 5. Hyperlipidemia. 6. Mild to moderate aortic stenosis. 7. Cirrhosis. 8. Degenerative disk disease. 9. Obstructive sleep apnea, does not wear mask. 10. Restless leg syndrome. 11. Peripheral arterial disease. STUDIES COMPLETED WHILE IN THE HOSPITAL: She had a chest x-ray on 11/07/17. Radiologist impression: Stigmata of probably obstructive lung disease, mild cardiomegaly, no acute pulmonary or cardiac process evident. Echocardiogram on 11/07/17 showed sinus rhythm at a rate of 74. She had a nuclear stress test completed today. Radiologist impression: Assessment was low risk. There was small perfusion deficit seen in the anterior septal myocardium, becomes slightly worse with stress. Imaging view indicating a degree of reversibility. Her ejection fraction was calculated as 67% during the stress. Again this is a low risk stress test. DISCHARGE MEDICATIONS: There are no new discharge medications. Continued home medications, 1. Metformin 500 mg p.o. b.i.d. 2. Mirapex ER 1.5 mg p.o. q. p.m. 3. Vitamin D 1000 units p.o. daily. 4. Multivitamin 1 tablet p.o. daily. 5. Lisinopril 20 mg p.o. b.i.d. 6. Benadryl 50 mg p.o. q. 6 hours as needed. 7. Protonix 40 mg p.o. daily. 8. Nitroglycerin 0.4 mg sublingual q. 5 minutes p.r.n. chest pain. 9. Metoprolol succinate XL 12.5 mg p.o. daily. 10. Isosorbide mononitrate ER tab 15 mg p.o. daily. 11. Hydrochlorothiazide 50 mg p.o. daily. 12. Ferrous sulfate 325 mg p.o. daily. 13. Calcium carbonate/vitamin D3 one tablet p.o. b.i.d. 14. Baclofen 20 mg p.o. t.i.d. 15. Atorvastatin 40 mg p.o. daily. 16. Enteric coated aspirin 81 mg p.o. daily. 17. Fosamax 70 mg p.o. weekly. HISTORY OF PRESENT ILLNESS AND HOSPITAL COURSE: Ms. Nowak is a 62-year-old female that presented with multiple medical problems. She presented to the emergency room with 2 episodes of chest pain for which she took nitro at home. Initially, the chest pain went away and then she had a second episode of chest pain. She recently had a heart catheterization in March and since then she has been doing very well. She became concerned after the second episode of chest pain, heaviness and the pain going up into her jaw and arm and some sweatiness and nausea, and came in for further evaluation. While in the emergency room, she had routine lab work drawn. Her initial troponin was 0.00. Her second troponin was 0.01 and her third troponin was 0.00. Her CK was 27. While in the hospital, she was monitored on telemetry with no significant findings. She had a nuclear stress test this morning, which was reported as low risk. Ms. Nowak denies any further chest pain. She does complain of restless legs and lower lumbar muscle spasms. She reports that these were at her baseline and she continually has these spasms on a daily basis. At this time, given her negative troponin's and low risk stress test, she is stable for discharge home. She was able to ambulate in the hallways without any difficulty. Denied any shortness of breath or chest pain. At this time, Ms. Nowak is stable for discharge home. Vital signs are as follows: Blood pressure 118/89, pulse is 72, respirations 18, O2 saturations on room air was 98%, temperature was 97.1. DISCHARGE PLAN: 1. Ms. Nowak will be discharged back home. 2. Activity as tolerated. 3. She should continue on a low-sodium, heart healthy diet. 4. In regards to her chest pain, she should followup with her hunter trapper Dr. Brody in 4 to 7 days. The results of her stress test were reviewed with the patient and she verbalized understanding. 5. She should resume all of her home medications. 6. She should follow up with her primary care provider in 4 to 7 days. 7. The patient was instructed to return to the emergency room if she developed any increased chest pain or shortness of breath. This is a summary of her hospitalization; for further details, please see the entire medical record. TIME SPENT: Time spent on this discharge was approximately 60 minutes, greater than half of the time was spent with the patient discussing discharge plans and instructions. CONDITION ON DISCHARGE: Stable. FRANCISCA MCADAMS NP [id number]/[facility] #: [id number] [place]
== END 2017-11-08 14:20 | disposition home or self-care (01) ==
LOC: ED 08:48 → MEDTELE 13:13
PROVIDERS: ADMIT Internal Medicine; ATTEND Internal Medicine
DX: R07.9 Chest pain, unspecified (principal); R06.02 Shortness of breath; E11.9 Type 2 diabetes mellitus without complications; K21.9 Gastro-esophageal reflux disease without esophagitis; I25.10 Atherosclerotic heart disease of native coronary artery without angina pectoris; I10 Essential (primary) hypertension; I35.0 Nonrheumatic aortic (valve) stenosis; K74.60 Unspecified cirrhosis of liver; G47.33 Obstructive sleep apnea (adult) (pediatric); G25.81 Restless legs syndrome; I73.9 Peripheral vascular disease, unspecified; Z79.899 Other long term (current) drug therapy; Z88.8 Allergy status to other drugs, medicaments and biological substances; Z88.2 Allergy status to sulfonamides; Z79.84 Long term (current) use of oral hypoglycemic drugs; Z87.891 Personal history of nicotine dependence; K75.81 Nonalcoholic steatohepatitis (NASH); M51.36 Other intervertebral disc degeneration, lumbar region; I51.7 Cardiomegaly; R00.1 Bradycardia, unspecified
CPT/HCPCS: 36415; 71045; 78452; 80048; 80053; 80061; 81003; 81015; 82550; 82553; 83036; 83605; 83735; 83880; 84443; 84484; 85025; 85610; 85730; 87086; 93005; 93017; 96372; 96374; 96375; 96376; 99284; A9270-GY; A9502; G0378; J0780; J1170; J1644; J2060; J2405; J2785

== ENCOUNTER 2018-05-19 15:28 | Emergency (ER) | payer MEDICARE, MEDICAID ==
[2018-05-19] MEDS ORDERED: Diazepam TAB(*) 5 MG PO ONE ×2 (18:21→19:29)
[2018-05-19] MEDS ORDERED: Lidocaine PATCH 5%* 1 PATCH TRANSDERM SCH (19:00)
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
[2018-05-19] MEDS ORDERED: Lidocaine PATCH 5%* 1 PATCH TRANSDERM ONE (19:44)
[2018-05-19 20:07] VITALS: BP 131/61
[2018-05-20] MEDS ORDERED: Lidocaine Patch REMOVE* 1 NOTE MISC PATCH OFF SCH (07:00)
== END 2018-05-19 20:06 | disposition home or self-care (01) ==
LOC: ED 15:28
DX: M54.2 Cervicalgia (principal); F17.210 Nicotine dependence, cigarettes, uncomplicated; D64.9 Anemia, unspecified; I25.119 Atherosclerotic heart disease of native coronary artery with unspecified angina pectoris; E78.00 Pure hypercholesterolemia, unspecified; E11.9 Type 2 diabetes mellitus without complications; I35.0 Nonrheumatic aortic (valve) stenosis; K74.60 Unspecified cirrhosis of liver; Z79.899 Other long term (current) drug therapy; Z88.2 Allergy status to sulfonamides; Z88.8 Allergy status to other drugs, medicaments and biological substances; Z88.1 Allergy status to other antibiotic agents
CPT/HCPCS: 99282; A9270-GY

== ENCOUNTER 2018-06-02 07:49 | Emergency (ER) | payer MEDICARE, MEDICAID ==
[2018-06-02] MEDS ORDERED: Ketorolac INJ* 30 MG/ML 1 ML VIAL IV PUSH ONE (08:05)
[2018-06-02] MEDS ORDERED: LORazepam INJ* 2 MG/ML 1 ML VIAL IV PUSH ONE (08:06)
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
--- NOTE | 2018-06-02 09:41 | RAD ---
INDICATION: Pain post elevator fall. COMPARISON: January 25, 2016 CT TECHNIQUE: Multidetector CT images foramen magnum to lung apices without contrast. Multiplanar reformation. REPORT: Normal vertebral alignment accounting for exam positioning without spondylolisthesis or subluxation at any level. Negative for cervical vertebral body or posterior element fracture. Negative for paravertebral hematoma. Multilevel very mild degenerative spondylosis and facet joint osteoarthritis. No CT evidence for acquired central canal or foraminal stenosis at any level. IMPRESSION: #. No CT evidence for traumatic injury of the cervical spine.
--- NOTE | 2018-06-02 09:47 | RAD ---
Indication: Back pain following injury due to elevator fall. Comparison: December 16, 2016 and October 17, 2015 CT exams. Technique: Noncontrast CT thoracic spine. Multiplanar reformation. Report: Cardiomegaly. Mild bilateral dependent atelectasis. Negative for pleural effusions or pneumothorax within the [id number]. Negative for thoracic vertebral body or posterior element fracture at any level. Small probable osseous hemangioma at the LEFT margin of the T1 vertebral body is unchanged compared with the December 16, 2016 and a more remote CT from October 17, 2015 without concern. Negative for suspicious focal osseous lesions. Multilevel degenerative spondylosis with predominant anterior and RIGHT lateral osteophytes without significant change. No evidence for acquired spinal stenosis at any level. Negative for paravertebral hematoma. IMPRESSION: #. No CT evidence for traumatic thoracic spine injury.
--- NOTE | 2018-06-02 09:56 | RAD ---
Indication: Back pain following injury sustained in elevator fall. Remote history of laminectomy. Comparison: October 07, 2017 radiographs. May 06, 2017 CT. Technique: Noncontrast CT lumbar sacral spine. Multiplanar reformation. Report: Atherosclerotic calcification of normal diameter abdominal aorta and iliac arteries. Negative for paravertebral hematoma. Negative for fracture or spondylolysis at any level. Normal vertebral alignment without spondylolisthesis at any level. T12-L1: Mild degenerative spondylosis. No evidence for spinal stenosis. L1-L2: Mild degenerative spondylosis. No evidence for spinal stenosis. L2-L3: Mild degenerative spondylosis. Negative for spinal stenosis. L3-L4: Mild degenerative spondylosis. Negative for spinal stenosis. L4-L5: Moderate disc space narrowing and moderate annular disc bulge. Negative for significant spinal stenosis. L5-S1: Moderately severe disc space narrowing. Moderate dorsal osteophytosis and facet joint osteoarthritis. Resulting mild LEFT unilateral foraminal stenosis. Chronic LEFT laminotomy defect. IMPRESSION: #. No CT evidence for traumatic lumbar sacral spine injury. #. Degenerative spondylosis and facet joint osteoarthritis. Mild LEFT unilateral foraminal stenosis at L5-S1 without significant change.
--- NOTE | 2018-06-02 10:01 | RAD ---
Indication: Pain post elevator fall. Comparison: May 30, 2016 Technique: AP and crosstable lateral views of the bilateral knees. Report: Negative for significant joint effusions. Negative for fracture or malalignment at the RIGHT or LEFT knee. Grossly preserved joint spaces. Unremarkable soft tissue contours. Peripheral vascular calcifications. IMPRESSION: #. No radiographic evidence for RIGHT or LEFT knee traumatic injury.
--- NOTE | 2018-06-02 10:04 | RAD ---
Indication: Bilateral ankle pain post elevator fall. Comparison: No relevant prior exams available on the [facility] for comparison. Technique: AP, mortise, and lateral views of the bilateral ankles. Report: Bone density appears decreased throughout. No cortical disruption or suspicious trabecular irregularity to suggest fracture. Normal articular alignment. No significant arthropathic change. Mild nonfocal soft tissue swelling. IMPRESSION: #. No radiographic evidence for RIGHT or LEFT ankle fracture or malalignment.
[2018-06-02 10:30] VITALS: BP 143/56
== END 2018-06-02 10:28 | disposition home or self-care (01) ==
LOC: ED 07:49
DX: S23.3XXA Sprain of ligaments of thoracic spine, initial encounter (principal); S83.92XA Sprain of unspecified site of left knee, initial encounter; W31.89XA Contact with other specified machinery, initial encounter; R10.9 Unspecified abdominal pain; Z88.2 Allergy status to sulfonamides; Z88.8 Allergy status to other drugs, medicaments and biological substances; Z79.899 Other long term (current) drug therapy; D64.9 Anemia, unspecified; I10 Essential (primary) hypertension; I25.119 Atherosclerotic heart disease of native coronary artery with unspecified angina pectoris; E78.5 Hyperlipidemia, unspecified; F17.210 Nicotine dependence, cigarettes, uncomplicated; Z95.5 Presence of coronary angioplasty implant and graft
CPT/HCPCS: 72125; 72128; 72131; 96374; 96375; 99283; J1885; J2060